=== PATIENT | male | born 1975 | race Caucasian/White ===

== ENCOUNTER 2017-08-18 15:31 | Day surgery (SDC) | payer BC ==
[2017-08-18] MEDS ORDERED: Sodium Chloride 0.9% 20 ML ONE (15:45)
[2017-08-18] MEDS ORDERED: ADMIXTURE FEE IVPB SCH (16:00)
[2017-08-18] MEDS ORDERED: SODIUM CHLORIDE 0.9% IVPB SCH (16:00)
[2017-08-18] MEDS ORDERED: BEVACIZUMAB IVPB SCH (16:00)
[2017-08-18] MEDS ORDERED: SODIUM CHLORIDE IVPB SCH (16:00)
[2017-08-18] MEDS ORDERED: FLUOROURACIL IVPB SCH (16:00)
[2017-08-18 17:08] VITALS: BP 119/78; TEMP 98.5
== END 2017-08-18 17:57 | disposition home or self-care (01) ==
LOC: ONC/OP 15:31
PROVIDERS: ATTEND Internal Medicine Hematology & Oncology
DX: Z51.11 Encounter for antineoplastic chemotherapy (principal); C18.8 Malignant neoplasm of overlapping sites of colon; C78.7 Secondary malignant neoplasm of liver and intrahepatic bile duct; R97.0 Elevated carcinoembryonic antigen [CEA]; K50.90 Crohn's disease, unspecified, without complications; Z79.899 Other long term (current) drug therapy; Z90.49 Acquired absence of other specified parts of digestive tract; Z93.2 Ileostomy status; Z98.890 Other specified postprocedural states
CPT/HCPCS: 80053; 82248; 82378; 83615; 84100; 84550; 85025; 96367; 96413; 96417; A4216; J0640; J1642; J7050; J9035; J9190

== ENCOUNTER 2017-09-01 13:42 | Day surgery (SDC) | payer BC ==
[2017-09-01 13:58] VITALS: BP 148/86; TEMP 98.1
[2017-09-01] MEDS ORDERED: SODIUM CHLORIDE IVPB SCH (14:30)
[2017-09-01] MEDS ORDERED: FLUOROURACIL IVPB SCH (14:30)
[2017-09-01] MEDS ORDERED: ADMIXTURE FEE IVPB SCH (14:30)
[2017-09-01] MEDS ORDERED: SODIUM CHLORIDE 0.9% IVPB SCH (14:30)
[2017-09-01] MEDS ORDERED: BEVACIZUMAB IVPB SCH (14:30)
== END 2017-09-01 15:54 | disposition home or self-care (01) ==
LOC: ONC/OP 13:42
PROVIDERS: ATTEND Internal Medicine Hematology & Oncology
DX: Z51.11 Encounter for antineoplastic chemotherapy (principal); C18.8 Malignant neoplasm of overlapping sites of colon; C78.7 Secondary malignant neoplasm of liver and intrahepatic bile duct; Z90.49 Acquired absence of other specified parts of digestive tract; Z93.2 Ileostomy status
CPT/HCPCS: 36415; 80053; 82248; 82378; 83615; 84100; 84550; 96367; 96413; 96417; J0640; J7050; J9035; J9190

== ENCOUNTER 2017-09-15 07:28 | Outpatient (CLI) | payer BC ==
--- NOTE | 2017-09-15 10:37 | CT ---
CHEST CT SCAN WITH IV CONTRAST ABDOMEN AND PELVIC CT SCAN WITH IV CONTRAST: History: 42-year-old male with malignant neoplasm overlaps sites of colon with history of prior liver metasta ses, resection with colostomy. Comparison: 04-22-[address], PET CT 01-31-17 Technique: Post contrast CT examination of the chest, abdomen, and pelvis is performed. FINDINGS: No evidence for pulmonary metastases. No mediastinal mass or adenopathy within the chest. No pleural effusion or pericardial effusion. In the liver there is an increase in size in metastatic liver lesion adjacent to the IVC in the righ t lobe as well as probable development of a 1.1 cm diameter lesion in the inferior and coronal aspec t of the right lobe of the liver. There is some minimal pericholecystic fluid. There are several oth er small stable hypoechoic foci within the liver. There is interval development of an approximately 2.9 x 6 cm diameter anterior mesenteric mass about midway between the xiphoid and umbilicus. In magali tion there are some nodular soft tissue changes in the left lateral abdominal mesentery and omental region. These are very concerning for omental metastasis. There is some minimal free fluid at the ed ge of the liver and possibly very mild free fluid in the pelvis. There is some abnormal wall thicken ing of the right colon at the site of prior surgery. This wall thickening now measures up to approxi mately 1.7 cm, very suspicious for tumor recurrence. There is also a 1.4 cm diameter nodular density adjacent to the resected lower right colon which may represent a focal area of recurrence as well. IMPRESSION: Interval development of multiple masses within the omentum and mesentery consistent with omental met astasis, the largest of which measures approximately 2.9 x 6 cm noted anteriorly in the upper abdome n. Prominent abnormal nodular wall thickening of the right colon at the site of prior surgery, evide nce for tumor recurrence with an associated 1.4 cm diameter nodular exophytic mass off the posterior portion of the remaining right colon. Minimal enlargement of liver metastasis adjacent to the IVC i n the right lobe as well as interval development of a 1.1 cm diameter liver mass at the inferior cor tical aspect of the liver. Minimal pericholecystic fluid. Stable nonobstructing right renal calculus and small left renal cyst. Trace peroneal fluid in the subhepatic region. No significant acute proc ess in the chest. Findings discussed with Dr. Arredondo at approximately 9:00 a.m. Code CR POS: [facility]
[2017-09-15] MEDS ORDERED: Iopamidol 370 76% 100 ML VIAL ONE (15:49)
== END 2017-09-15 07:29 | disposition home or self-care (01) ==
LOC: CT 07:28
PROVIDERS: ATTEND Internal Medicine Hematology & Oncology
DX: C18.8 Malignant neoplasm of overlapping sites of colon (principal); N28.1 Cyst of kidney, acquired; N20.0 Calculus of kidney
CPT/HCPCS: 71260; 74177; 80053; 82248; 82378; 83615; 84100; 84550

== ENCOUNTER → 2017-09-21 | Day surgery (SDC) | payer BC ==
[~2017-09-21] MED LIST: ADMIXTURE FEE IVPB SCH; Atropine Sulfate 0.25 MG in Sodium Chloride 0.9% 50 ML IVPB SCH; BEVACIZUMAB IVPB SCH; Dexamethasone 10 MG in Sodium Chloride 0.9% 50 ML IVPB SCH; Dexamethasone 20 MG in Sodium Chloride 0.9% 50 ML IVPB SCH; FLUOROURACIL SLOW IVP SCH; IRINOTECAN HCL IVPB SCH; Leucovorin Calcium 50 MG in Sodium Chloride 0.9% 500 ML IVPB SCH; Palonosetron HCl 0.25 MG in Sodium Chloride 0.9% 50 ML IVPB SCH; SODIUM CHLORIDE 0.9% IVPB SCH; SODIUM CHLORIDE IVPB SCH; Sodium Chloride 0.9% 20 ML ONE
[2017-09-21 16:18] VITALS: BP 118/71; TEMP 98.2
== END ==
LOC: ONC/OP 15:02
PROVIDERS: ATTEND Internal Medicine Hematology & Oncology
DX: Z51.11 Encounter for antineoplastic chemotherapy (principal); C18.8 Malignant neoplasm of overlapping sites of colon; C78.7 Secondary malignant neoplasm of liver and intrahepatic bile duct; K50.90 Crohn's disease, unspecified, without complications; Z90.49 Acquired absence of other specified parts of digestive tract
CPT/HCPCS: 96367; 96413; 96415; 96417; A4216; J0461; J0640; J1100; J2469; J7050; J9035; J9190; J9206

== ENCOUNTER 2017-10-05 14:08 | Day surgery (SDC) | payer BC ==
[2017-10-05] MEDS ORDERED: Atropine Sulfate 0.25 MG in Sodium Chloride 0.9% 50 ML IVP SCH (14:30)
[2017-10-05] MEDS ORDERED: Palonosetron HCl 0.25 MG in Sodium Chloride 0.9% 50 ML IVPB SCH (14:30)
[2017-10-05] MEDS ORDERED: Dexamethasone 20 MG in Sodium Chloride 0.9% 50 ML IVPB SCH (14:30)
[2017-10-05] MEDS ORDERED: BEVACIZUMAB IVPB SCH (14:30)
[2017-10-05] MEDS ORDERED: SODIUM CHLORIDE 0.9% IVPB SCH ×2 (14:30→16:30)
[2017-10-05] MEDS ORDERED: Atropine Sulfate 0.25 MG in Sodium Chloride 0.9% 50 ML IVPB SCH (14:45)
[2017-10-05] MEDS ORDERED: SODIUM CHLORIDE IVPB SCH (14:45)
[2017-10-05] MEDS ORDERED: ADMIXTURE FEE IVPB SCH (14:45)
[2017-10-05] MEDS ORDERED: FLUOROURACIL IVPB SCH (14:45)
[2017-10-05] MEDS ORDERED: IRINOTECAN HCL IVPB SCH (16:30)
[2017-10-05] MEDS ORDERED: Sodium Chloride 0.9% 20 ML ONE (18:14)
[2017-10-05 18:19] VITALS: BP 113/76; TEMP 98.1
== END 2017-10-05 19:17 | disposition home or self-care (01) ==
LOC: ONC/OP 14:08
PROVIDERS: ATTEND Internal Medicine Hematology & Oncology
DX: Z51.11 Encounter for antineoplastic chemotherapy (principal); C18.9 Malignant neoplasm of colon, unspecified; C78.6 Secondary malignant neoplasm of retroperitoneum and peritoneum; G62.9 Polyneuropathy, unspecified; K50.90 Crohn's disease, unspecified, without complications; Z90.49 Acquired absence of other specified parts of digestive tract; Z98.890 Other specified postprocedural states
CPT/HCPCS: 36415; 80053; 82248; 82378; 83615; 84100; 84550; 96367; 96413; 96417; A4216; J0461; J0640; J1100; J2469; J7050; J9035; J9190; J9206

== ENCOUNTER 2017-10-19 15:10 | Day surgery (SDC) | payer BC ==
[2017-10-19] MEDS ORDERED: Dexamethasone 20 MG in Sodium Chloride 0.9% 50 ML IVPB SCH (15:30)
[2017-10-19 15:36] VITALS: BP 109/69; TEMP 97.8
[2017-10-19] MEDS ORDERED: ADMIXTURE FEE CHEMO SLOW IVP SCH (15:45)
[2017-10-19] MEDS ORDERED: BEVACIZUMAB IVPB SCH (15:45)
[2017-10-19] MEDS ORDERED: SODIUM CHLORIDE 0.9% IVPB SCH ×3 (15:45→16:00)
[2017-10-19] MEDS ORDERED: IRINOTECAN HCL IVPB SCH (15:45)
[2017-10-19] MEDS ORDERED: Atropine Sulfate 0.25 MG in Sodium Chloride 0.9% 50 ML IVPB SCH (15:45)
[2017-10-19] MEDS ORDERED: FLUOROURACIL SLOW IVP SCH (15:45)
[2017-10-19] MEDS ORDERED: Palonosetron HCl 0.25 MG in Sodium Chloride 0.9% 50 ML IVPB SCH (15:45)
[2017-10-19] MEDS ORDERED: FLUOROURACIL IVPB SCH (16:00)
== END 2017-10-19 20:57 | disposition home or self-care (01) ==
LOC: ONC/OP 15:10
PROVIDERS: ATTEND Internal Medicine Hematology & Oncology
DX: Z51.11 Encounter for antineoplastic chemotherapy (principal); C18.9 Malignant neoplasm of colon, unspecified; Z90.49 Acquired absence of other specified parts of digestive tract
CPT/HCPCS: 80053; 82248; 82378; 83615; 84100; 84550; 96367; 96413; 96417; J0461; J0640; J1100; J2469; J7050; J9035; J9190; J9206

== ENCOUNTER 2017-11-02 12:06 | Day surgery (SDC) | payer BC ==
[2017-11-02] MEDS ORDERED: SODIUM CHLORIDE 0.9% IVPB SCH ×4 (12:15→13:15)
[2017-11-02] MEDS ORDERED: Dexamethasone 20 MG in Sodium Chloride 0.9% 50 ML IVPB SCH (12:15)
[2017-11-02] MEDS ORDERED: Palonosetron HCl 0.25 MG in Sodium Chloride 0.9% 50 ML IVPB SCH (12:15)
[2017-11-02] MEDS ORDERED: Atropine Sulfate 0.25 MG in Sodium Chloride 0.9% 50 ML IVPB SCH (12:15)
[2017-11-02] MEDS ORDERED: IRINOTECAN HCL IVPB SCH (12:15)
[2017-11-02] MEDS ORDERED: Sodium Chloride 0.9% 20 ML ONE (12:19)
[2017-11-02] MEDS ORDERED: FLUOROURACIL IVPB SCH (12:30)
[2017-11-02] MEDS ORDERED: BEVACIZUMAB IVPB SCH ×2 (12:30→13:15)
== END 2017-11-02 18:10 | disposition home or self-care (01) ==
LOC: ONC/OP 12:06
PROVIDERS: ATTEND Internal Medicine Hematology & Oncology
DX: Z51.11 Encounter for antineoplastic chemotherapy (principal); C18.8 Malignant neoplasm of overlapping sites of colon; C78.7 Secondary malignant neoplasm of liver and intrahepatic bile duct; G62.0 Drug-induced polyneuropathy; K50.90 Crohn's disease, unspecified, without complications; Z90.49 Acquired absence of other specified parts of digestive tract
CPT/HCPCS: 80053; 82248; 82378; 83615; 84100; 84550; 96367; 96413; 96415; 96417; A4216; J0461; J0640; J1100; J2469; J7050; J9035; J9190; J9206

== ENCOUNTER 2017-11-17 08:07 | Day surgery (SDC) | payer BC ==
[2017-11-17] MEDS ORDERED: Dexamethasone 20 MG in Sodium Chloride 0.9% 50 ML IVPB SCH (08:45)
[2017-11-17] MEDS ORDERED: Palonosetron HCl 0.25 MG in Sodium Chloride 0.9% 50 ML IVPB SCH (08:45)
[2017-11-17] MEDS ORDERED: Atropine Sulfate 0.25 MG in Sodium Chloride 0.9% 50 ML IVPB SCH (08:45)
[2017-11-17] MEDS ORDERED: IRINOTECAN HCL IVPB SCH (09:00)
[2017-11-17] MEDS ORDERED: SODIUM CHLORIDE 0.9% SLOW IVP SCH (09:00)
[2017-11-17] MEDS ORDERED: FLUOROURACIL SLOW IVP SCH (09:00)
[2017-11-17] MEDS ORDERED: SODIUM CHLORIDE 0.9% IVPB SCH ×2 (09:00)
[2017-11-17] MEDS ORDERED: BEVACIZUMAB IVPB SCH (09:00)
[2017-11-17] MEDS ORDERED: Sodium Chloride 0.9% 20 ML ONE (09:04)
[2017-11-17 09:37] VITALS: BP 111/65; TEMP 97.7
== END 2017-11-17 14:21 | disposition home or self-care (01) ==
LOC: ONC/OP 08:07
PROVIDERS: ATTEND Internal Medicine Hematology & Oncology
DX: Z51.11 Encounter for antineoplastic chemotherapy (principal); C18.8 Malignant neoplasm of overlapping sites of colon; C78.7 Secondary malignant neoplasm of liver and intrahepatic bile duct; K50.90 Crohn's disease, unspecified, without complications; G62.2 Polyneuropathy due to other toxic agents; T45.1X5A Adverse effect of antineoplastic and immunosuppressive drugs, initial encounter; Z90.49 Acquired absence of other specified parts of digestive tract
CPT/HCPCS: 96367; 96413; 96415; 96417; A4216; J0461; J0640; J1100; J2469; J7050; J9035; J9190; J9206

== ENCOUNTER 2017-11-30 11:29 | Day surgery (SDC) | payer BC ==
[2017-11-30 11:48] VITALS: BP 115/65; TEMP 97.8
[2017-11-30] MEDS ORDERED: Sodium Chloride 0.9% 20 ML ONE (11:53)
[2017-11-30] MEDS ORDERED: Dexamethasone 20 MG in Sodium Chloride 0.9% 50 ML IVPB SCH (12:00)
[2017-11-30] MEDS ORDERED: BEVACIZUMAB IVPB SCH ×2 (12:00)
[2017-11-30] MEDS ORDERED: IRINOTECAN HCL IVPB SCH (12:00)
[2017-11-30] MEDS ORDERED: Atropine Sulfate 0.25 MG in Sodium Chloride 0.9% 50 ML IVPB SCH (12:00)
[2017-11-30] MEDS ORDERED: SODIUM CHLORIDE 0.9% SLOW IVP SCH (12:00)
[2017-11-30] MEDS ORDERED: SODIUM CHLORIDE 0.9% IVPB SCH ×3 (12:00)
[2017-11-30] MEDS ORDERED: FLUOROURACIL SLOW IVP SCH (12:00)
[2017-11-30] MEDS ORDERED: Palonosetron HCl 0.25 MG in Sodium Chloride 0.9% 50 ML IVPB SCH (12:00)
== END 2017-11-30 17:34 | disposition home or self-care (01) ==
LOC: ONC/OP 11:29
PROVIDERS: ATTEND Internal Medicine Hematology & Oncology
DX: Z51.11 Encounter for antineoplastic chemotherapy (principal); C18.8 Malignant neoplasm of overlapping sites of colon; C78.7 Secondary malignant neoplasm of liver and intrahepatic bile duct; C78.6 Secondary malignant neoplasm of retroperitoneum and peritoneum; K50.90 Crohn's disease, unspecified, without complications; G62.9 Polyneuropathy, unspecified; Z90.49 Acquired absence of other specified parts of digestive tract; Z98.890 Other specified postprocedural states
CPT/HCPCS: 80053; 82248; 82378; 83615; 84100; 84550; 96367; 96413; 96415; 96417; A4216; J0461; J0640; J1100; J2469; J7050; J9035; J9190; J9206

== ENCOUNTER 2017-12-07 09:03 | Outpatient (CLI) | payer BC ==
[2017-12-07] MEDS ORDERED: Iopamidol 370 76% 100 ML VIAL ONE (16:21)
== END 2017-12-07 09:04 | disposition home or self-care (01) ==
LOC: BICCT 09:03
PROVIDERS: ATTEND Internal Medicine Hematology & Oncology
DX: C18.9 Malignant neoplasm of colon, unspecified (principal); C78.7 Secondary malignant neoplasm of liver and intrahepatic bile duct
CPT/HCPCS: 71260; 74177

== ENCOUNTER 2017-12-14 10:53 | Day surgery (SDC) | payer BC ==
[2017-12-14] MEDS ORDERED: Sodium Chloride 0.9% 40 ML ONE (10:55)
[2017-12-14 11:12] VITALS: BP 114/76; TEMP 97.9
[2017-12-14] MEDS ORDERED: PALONOSETRON HCL 0.05 MG/ML 5 ML VIAL IVP SCH (12:00)
[2017-12-14] MEDS ORDERED: Dexamethasone 20 MG/5 ML VIAL SLOW IVP SCH (12:00)
[2017-12-14] MEDS ORDERED: Atropine Sulfate 0.25 MG in Sodium Chloride 0.9% 50 ML IVPB SCH (12:00)
[2017-12-14] MEDS ORDERED: BEVACIZUMAB IVPB SCH (12:15)
[2017-12-14] MEDS ORDERED: SODIUM CHLORIDE 0.9% IVPB SCH ×3 (12:15→12:30)
[2017-12-14] MEDS ORDERED: IRINOTECAN HCL IVPB SCH (12:15)
[2017-12-14] MEDS ORDERED: FLUOROURACIL SLOW IVP SCH (12:30)
[2017-12-14] MEDS ORDERED: FLUOROURACIL IVPB SCH (12:30)
[2017-12-14] MEDS ORDERED: ADMIXTURE FEE CHEMO SLOW IVP SCH (12:30)
[2017-12-14] MEDS ORDERED: Dexamethasone 4 mg/ml Vial SLOW IVP SCH (13:00)
== END 2017-12-14 16:15 | disposition home or self-care (01) ==
LOC: ONC/OP 10:53
PROVIDERS: ATTEND Internal Medicine Hematology & Oncology
DX: Z51.11 Encounter for antineoplastic chemotherapy (principal); C18.8 Malignant neoplasm of overlapping sites of colon; C78.7 Secondary malignant neoplasm of liver and intrahepatic bile duct; G62.9 Polyneuropathy, unspecified; K50.90 Crohn's disease, unspecified, without complications; Z90.49 Acquired absence of other specified parts of digestive tract
CPT/HCPCS: 36415; 80053; 82248; 82378; 83615; 84100; 84550; 96367; 96376; 96413; 96417; A4216; J0461; J0640; J1100; J2469; J7050; J9035; J9190; J9206

== ENCOUNTER 2017-12-22 12:31 | Outpatient (CLI) | payer BC ==
--- NOTE | 2017-12-22 15:07 | PET ---
PET CT: HISTORY: 42-year-old male with colorectal cancer. Exam requested for restaging. Last chemotherapy was 1 week a go. TECHNIQUE: PET scanning with CT attenuation correction was performed from the base of the brain through the prox imal thighs following the intravenous administration of 11.8 mCi F18-FDG in the left antecubital frannie a. Imaging was performed after an uptake interval of 47 minutes. COMPARISON: PET CT dated 01/31/17. CORRELATION: CT chest, abdomen, and pelvis dated 12/07/17. FINDINGS: There is a focal area of increased FDG localization in the lower medial aspect of the liver close to the IVC with a SUV of 10.3. The mid anterior abdominal wall mass is hypermetabolic with a SUV of 7.1. Small focus of increased up take in the gastrohepatic ligament with a SUV of 4.8 likely represents a lymph node. There is a hypermetabolic soft tissue density anterior to the right psoas in the right lower quadrant with a SUV of 3.7. Soft tissue nodules with increased FDG localization are seen in the left abdomen and pelvis with a SUV of 5.3 in the left upper iliac fossa and SUV of 5 in the left deep pelvis. Focal increased uptake is seen in the lateral rectal wall on the left with a SUV of 5. No hypermetabolic pulmonary nodules, adrenal, or skeletal lesions are seen. There is physiologic activity in the GI and tracts and the visualized portions of the brain. The CT scan used for attenuation correction demonstrates no evidence of pleural effusions or ascites. A right lower quadrant ostomy is again seen. IMPRESSION: Findings are consistent with metastatic disease in the abdomen and pelvis. Interval worsening is seen since the PET CT of 01/31/17. POS: [facility]
== END 2017-12-22 12:32 | disposition home or self-care (01) ==
LOC: PET 12:31
PROVIDERS: ATTEND Internal Medicine Hematology & Oncology
DX: C18.8 Malignant neoplasm of overlapping sites of colon (principal)
CPT/HCPCS: 78815; A9552

== ENCOUNTER 2017-12-28 10:08 | Day surgery (SDC) | payer BC ==
[2017-12-28] MEDS ORDERED: LEUCOVORIN CALCIUM IVPB SCH (10:30)
[2017-12-28] MEDS ORDERED: SODIUM CHLORIDE IVPB SCH ×4 (10:30→10:45)
[2017-12-28] MEDS ORDERED: ADMIXTURE FEE IVPB SCH ×4 (10:30→10:45)
[2017-12-28] MEDS ORDERED: Atropine Sulfate 0.25 MG, Admixture Fee 1 EACH in Sodium Chloride 0.9% 50 ML IVPB SCH (10:30)
[2017-12-28] MEDS ORDERED: PALONOSETRON HCL 0.05 MG/ML 5 ML VIAL IVP SCH (10:45)
[2017-12-28] MEDS ORDERED: FLUOROURACIL IVPB SCH (10:45)
[2017-12-28] MEDS ORDERED: Dexamethasone 20 MG/5 ML VIAL SLOW IVP SCH (10:45)
[2017-12-28] MEDS ORDERED: IRINOTECAN HCL IVPB SCH (10:45)
[2017-12-28] MEDS ORDERED: BEVACIZUMAB IVPB SCH (10:45)
[2017-12-28 10:47] VITALS: BP 127/73; TEMP 97.9
[2017-12-28] MEDS ORDERED: Dexamethasone 4 mg/ml Vial SLOW IVP SCH (12:15)
== END 2017-12-28 16:12 | disposition home or self-care (01) ==
LOC: ONC/OP 10:08
PROVIDERS: ATTEND Internal Medicine Hematology & Oncology
DX: Z51.11 Encounter for antineoplastic chemotherapy (principal); C18.8 Malignant neoplasm of overlapping sites of colon; C78.7 Secondary malignant neoplasm of liver and intrahepatic bile duct; R97.0 Elevated carcinoembryonic antigen [CEA]; Z90.49 Acquired absence of other specified parts of digestive tract; K50.90 Crohn's disease, unspecified, without complications; G62.9 Polyneuropathy, unspecified; Z98.890 Other specified postprocedural states
CPT/HCPCS: 36415; 80053; 82248; 82378; 83615; 84100; 84550; 96366; 96375; 96413; 96417; J0461; J0640; J1100; J2469; J7050; J9035; J9190; J9206

== ENCOUNTER → 2018-01-11 | Day surgery (SDC) | payer BC ==
[~2018-01-11] MED LIST changes: -Atropine Sulfate 0.25 MG in Sodium Chloride 0.9% 50 ML IVPB SCH; +Atropine Sulfate 0.25 MG, Admixture Fee 1 EACH in Sodium Chloride 0.9% 50 ML IVPB SCH; -Dexamethasone 10 MG in Sodium Chloride 0.9% 50 ML IVPB SCH; +Dexamethasone 10 MG/ML VIAL SLOW IVP SCH; -Dexamethasone 20 MG in Sodium Chloride 0.9% 50 ML IVPB SCH; +FLUOROURACIL IVPB SCH; -FLUOROURACIL SLOW IVP SCH; +LEUCOVORIN CALCIUM IVPB SCH; -Leucovorin Calcium 50 MG in Sodium Chloride 0.9% 500 ML IVPB SCH; +PALONOSETRON HCL 0.05 MG/ML 5 ML VIAL IVP SCH; -Palonosetron HCl 0.25 MG in Sodium Chloride 0.9% 50 ML IVPB SCH; -SODIUM CHLORIDE 0.9% IVPB SCH; -Sodium Chloride 0.9% 20 ML ONE
[2018-01-11 16:59] VITALS: BP 120/74; TEMP 98.1
== END ==
LOC: ONC/OP 13:40
PROVIDERS: ATTEND Internal Medicine Hematology & Oncology
DX: Z51.11 Encounter for antineoplastic chemotherapy (principal); C18.8 Malignant neoplasm of overlapping sites of colon; C78.7 Secondary malignant neoplasm of liver and intrahepatic bile duct; G62.0 Drug-induced polyneuropathy; T45.1X5A Adverse effect of antineoplastic and immunosuppressive drugs, initial encounter; K50.90 Crohn's disease, unspecified, without complications; Z90.49 Acquired absence of other specified parts of digestive tract; Z98.890 Other specified postprocedural states
CPT/HCPCS: 80053; 82248; 82378; 83615; 84100; 84550; 96367; 96375; 96413; 96416; 96417; A4216; J0461; J0640; J1100; J2469; J7050; J9035; J9190; J9206

== ENCOUNTER 2018-01-25 09:22 | Day surgery (SDC) | payer BC ==
[2018-01-25] MEDS ORDERED: Palonosetron HCl 0.25 MG in Sodium Chloride 0.9% 50 ML IVPB SCH (09:30)
[2018-01-25] MEDS ORDERED: Dexamethasone 20 MG in Sodium Chloride 0.9% 50 ML IVPB SCH (09:30)
[2018-01-25] MEDS ORDERED: Sodium Chloride 0.9% 40 ML ONE (09:39)
[2018-01-25] MEDS ORDERED: SODIUM CHLORIDE 0.9% IVPB SCH ×4 (09:45→10:00)
[2018-01-25] MEDS ORDERED: BEVACIZUMAB IVPB SCH ×2 (09:45→10:00)
[2018-01-25] MEDS ORDERED: IRINOTECAN HCL IVPB SCH (09:45)
[2018-01-25] MEDS ORDERED: FLUOROURACIL SLOW IVP SCH ×2 (09:45→10:00)
[2018-01-25] MEDS ORDERED: Atropine Sulfate 0.25 MG in Sodium Chloride 0.9% 50 ML IVPB SCH (09:45)
[2018-01-25 09:58] VITALS: BP 130/99; TEMP 97.5
[2018-01-25] MEDS ORDERED: PALONOSETRON HCL 0.05 MG/ML 5 ML VIAL IVP SCH (10:00)
[2018-01-25] MEDS ORDERED: SODIUM CHLORIDE 0.9% SLOW IVP SCH (10:00)
[2018-01-25] MEDS ORDERED: FLUOROURACIL IVPB SCH (10:00)
[2018-01-25] MEDS ORDERED: Dexamethasone 10 MG/ML VIAL SLOW IVP SCH (10:15)
== END 2018-01-25 15:59 | disposition home or self-care (01) ==
LOC: ONC/OP 09:22
PROVIDERS: ATTEND Internal Medicine Hematology & Oncology
DX: Z51.11 Encounter for antineoplastic chemotherapy (principal); C18.8 Malignant neoplasm of overlapping sites of colon; C78.7 Secondary malignant neoplasm of liver and intrahepatic bile duct; K50.90 Crohn's disease, unspecified, without complications; Z90.49 Acquired absence of other specified parts of digestive tract
CPT/HCPCS: 36415; 80053; 82248; 82378; 83615; 84100; 84550; 96367; 96375; 96413; 96417; A4216; J0461; J0640; J1100; J2469; J7050; J9035; J9190; J9206

== ENCOUNTER 2018-02-08 09:36 | Day surgery (SDC) | payer BC ==
[2018-02-08] MEDS ORDERED: Sodium Chloride 0.9% 50 ML ONE (09:42)
[2018-02-08] MEDS ORDERED: Dexamethasone 10 MG/ML VIAL SLOW IVP SCH (09:45)
[2018-02-08] MEDS ORDERED: Atropine Sulfate 0.25 MG, Admixture Fee 1 EACH in Sodium Chloride 0.9% 50 ML IVPB SCH (09:45)
[2018-02-08] MEDS ORDERED: PALONOSETRON HCL 0.05 MG/ML 5 ML VIAL IVP SCH (09:45)
[2018-02-08] MEDS ORDERED: ADMIXTURE FEE IVPB SCH ×4 (09:45→10:00)
[2018-02-08] MEDS ORDERED: LEUCOVORIN CALCIUM IVPB SCH (09:45)
[2018-02-08] MEDS ORDERED: SODIUM CHLORIDE IVPB SCH ×4 (09:45→10:00)
[2018-02-08] MEDS ORDERED: BEVACIZUMAB IVPB SCH (10:00)
[2018-02-08] MEDS ORDERED: FLUOROURACIL IVPB SCH (10:00)
[2018-02-08] MEDS ORDERED: IRINOTECAN HCL IVPB SCH (10:00)
[2018-02-08 10:09] VITALS: BP 123/81; TEMP 97.7
== END 2018-02-08 14:40 | disposition home or self-care (01) ==
LOC: ONC/OP 09:36
PROVIDERS: ATTEND Internal Medicine Hematology & Oncology
DX: Z51.11 Encounter for antineoplastic chemotherapy (principal); C18.8 Malignant neoplasm of overlapping sites of colon; C78.6 Secondary malignant neoplasm of retroperitoneum and peritoneum; G62.0 Drug-induced polyneuropathy; T45.1X5A Adverse effect of antineoplastic and immunosuppressive drugs, initial encounter; K50.90 Crohn's disease, unspecified, without complications; Z90.49 Acquired absence of other specified parts of digestive tract; Z98.890 Other specified postprocedural states
CPT/HCPCS: 36415; 80053; 82248; 82378; 83615; 84100; 84550; 96367; 96375; 96413; 96417; A4216; J0461; J0640; J1100; J2469; J7050; J9035; J9190; J9206

== ENCOUNTER 2018-02-22 09:39 | Day surgery (SDC) | payer BC ==
[2018-02-22] MEDS ORDERED: Sodium Chloride 0.9% 40 ML ONE (09:58)
[2018-02-22] MEDS ORDERED: FLUOROURACIL IVPB SCH (10:15)
[2018-02-22] MEDS ORDERED: BEVACIZUMAB IVPB SCH (10:15)
[2018-02-22] MEDS ORDERED: LEUCOVORIN CALCIUM IVPB SCH (10:15)
[2018-02-22] MEDS ORDERED: Dexamethasone 10 MG/ML VIAL SLOW IVP SCH (10:15)
[2018-02-22] MEDS ORDERED: Atropine Sulfate 0.25 MG, Admixture Fee 1 EACH in Sodium Chloride 0.9% 50 ML IVPB SCH (10:15)
[2018-02-22] MEDS ORDERED: ADMIXTURE FEE IVPB SCH ×4 (10:15)
[2018-02-22] MEDS ORDERED: PALONOSETRON HCL 0.05 MG/ML 5 ML VIAL IVP SCH (10:15)
[2018-02-22] MEDS ORDERED: IRINOTECAN HCL IVPB SCH (10:15)
[2018-02-22] MEDS ORDERED: SODIUM CHLORIDE IVPB SCH ×4 (10:15)
[2018-02-22 11:32] VITALS: BP 134/86; TEMP 97.8
== END 2018-02-22 14:57 | disposition home or self-care (01) ==
LOC: ONC/OP 09:39
PROVIDERS: ATTEND Internal Medicine Hematology & Oncology
DX: R97.0 Elevated carcinoembryonic antigen [CEA]; Z98.890 Other specified postprocedural states; C78.7 Secondary malignant neoplasm of liver and intrahepatic bile duct; G62.2 Polyneuropathy due to other toxic agents; Z51.11 Encounter for antineoplastic chemotherapy; Z90.49 Acquired absence of other specified parts of digestive tract; K50.10 Crohn's disease of large intestine without complications; T45.1X5A Adverse effect of antineoplastic and immunosuppressive drugs, initial encounter; C18.8 Malignant neoplasm of overlapping sites of colon
CPT/HCPCS: 80053; 82248; 82378; 83615; 84100; 84550; 96367; 96375; 96413; 96417; A4216; J0461; J0640; J1100; J2469; J7050; J9035; J9190; J9206

== ENCOUNTER 2018-03-30 12:18 | Inpatient (IN) | payer BC ==
[2018-03-30] MEDS ORDERED: Sodium Chloride 0.9% 1,000 ML IV SCH ×2 (12:45→14:30)
[2018-03-30 13:37] VITALS: BMI 15.3
[2018-03-30] MEDS ORDERED: Acetaminophen 325 MG TAB PO PRN (14:27)
[2018-03-30] MEDS ORDERED: Morphine 4 MG/ML VIAL SLOW IVP PRN (14:27)
[2018-03-30] MEDS ORDERED: Ondansetron HCl/PF 4 MG/2 ML Vial IVP PRN (14:27)
[2018-03-30 15:03] LABS: Anisocytosis SLIGHT = 6-15 cells (100X) (0-5/hpf); Band 24 % (5-11); Hemoglobin 13.2 g/dL (14.0-18.0); Lymphocytes 3 % (21-51); MDiff Complete? YES; Mean Corpuscular HGB CONC 32.3 g/dL (32.0-36.0); Mean Corpuscular Hemoglobin 27.5 pg (27.0-31.0); Mean Corpuscular Volume 85.3 fl (80.0-94.0); Mean Platelet Volume 5.5 fL (7.4-10.4); Metamyelocyte 2 % (0-0); Monocytes 12 % (0-10); Neutrophil 57 % (42-75); PLT Morphology Comment Appears Increased; Platelet Count 706 thou/uL (130-400); RBC Distribution Width 14.7 % (11.5-14.5); Reactive Lymphocytes 2 % (0-10); Red Blood Cell (RBC) Count 4.78 mill/uL (4.70-6.10); Toxic Granulation SLIGHT; White Blood Cell (WBC) Count 14.9 thou/uL (4.8-10.8)
[2018-03-30 15:05] LABS: ALT (SGPT) 21 U/L (8-55); AST (SGOT) 29 U/L (5-34); Albumin 3.6 g/dL (3.5-5.0); Alkaline Phosphatase 147 U/L (40-150); Anion Gap 18 mmol/L (10-20); BUN (Urea Nitrogen) 58 mg/dL (8.9-20.6); Bilirubin, Total 0.4 mg/dL (0.2-1.2); Calc. Creatinine Clearance 26 mL/min (70-130); Carbon Dioxide 25 mmol/L (22-29); Chloride 81 mmol/L (98-107); Estimated GFR-MDRD 30; Globulin 3.6 g/dL (2.4-3.5); Glucose 119 mg/dL (70-105); Potassium 4.5 mmol/L (3.5-5.1); Protein, Total 7.2 g/dL (6.0-8.3)
[2018-03-30 15:09] LABS: Sodium 119 mmol/L (136-145)
[2018-03-30] MEDS: Sodium Chloride 0.9% 1,000 ML IV SCH (15:33)
[2018-03-30] MEDS ORDERED: cloNIDine 0.1 MG TAB PO PRN (17:05)
--- NOTE | 2018-03-30 17:55 | HP ---
PRIMARY CARE PHYSICIAN: The patient does not have a primary care physician. ONCOLOGIST: Jenn Arredondo MD REASON FOR ADMISSION: Dehydration and dysphagia. HISTORY OF PRESENT ILLNESS: Mr. Solorzano is a very pleasant 43-year-old gentleman who was diagnosed w ith colon cancer about a year and half ago. He was found to have a stage T4 N2 M1 adenocarcinoma of the colon, and he has been undergoing chemotherapy for this. He says that in the last month, he has been having progressive difficulty with swallowing. Over the last 6-7 days, he has not even been abl e to tolerate a protein shake, which he had been trying to take in order to keep his nutrition up. H dina says that he feels a pressure-like sensation in his chest and the food just would not go down. Usu ally, he has to spit it up. He says that if he lays to the side, then the food will just basically r oll out of his mouth. He also says he feels bloated and full with only one or two bites or even if h e just takes a sip. He says that he has lost about 30 pounds over the last month. He has a colostom y and says that the output from the colostomy has decreased. He has not seen any blood. He denies a ny hematemesis. He denies any abdominal pain and he denies any odynophagia or pain with swallowing. He was seen in his oncologist's office today and he is being directly admitted for further evaluatio n and treatment. REVIEW OF SYSTEMS: Constitutional: He denies any fevers. No chills, no night sweats, no weight los s. HEENT: Headaches. He has felt a little bit dizzy, lightheaded, and weak. No visual changes. N o sore throat, rhinorrhea, neck pain. No adenopathy. Pulmonary: No hemoptysis, no cough, no wheezi ng. Cardiovascular: He denies any chest pain or shortness of breath. No PND, no orthopnea. Gastro intestinal: As per history of present illness. Genitourinary: No urinary frequency, hematuria. No hesitancy. Musculoskeletal: No muscle pains, weakness, or joint pains. Neurologic: No focal weak ness, numbness. No seizures. Psychiatric: No symptoms of anxiety or depression. Skin and Integume nt: No skin changes. No rash. PAST MEDICAL HISTORY: Significant for stage IV adenocarcinoma of the colon diagnosed about a year an d half ago. He also has a history of Crohn's disease. PAST SURGICAL HISTORY: He has had a bowel resection and colostomy placed. He also has had a MediPor t. ALLERGIES: No known drug allergies. SOCIAL HISTORY: He is . He has 1 child. He is a nonsmoker, nondrinker. CODE STATUS: FULL CODE. FAMILY HISTORY: No history of any inheritable diseases. CURRENT MEDICATIONS: He said he was taking morphine sulfate and [place], but has since been unable to take this medication. PHYSICAL EXAMINATION: GENERAL: He is alert and oriented. He appears to be in no acute distress. He appears to be very ca chectic and he appears underweight. VITAL SIGNS: Stable. HEENT: His pupils are equal, round, and reactive. Extraocular muscles are intact. His sclerae are anicteric. Throat, there is no erythema, no exudates. NECK: No adenopathy, no bruits. LUNGS: Clear to auscultation. There was no wheezing, no rales. CARDIOVASCULAR: He had a normal S1 and S2. I did not appreciate an S3 or S4. No murmurs, clicks, o r rubs. ABDOMEN: Soft, nontender, nondistended. There were no problems around the colostomy site. Bowel so unds were present. No appreciable organomegaly. EXTREMITIES: There was no clubbing, cyanosis. No edema. He has got palpable dorsalis pedis pulses bilaterally. NEUROLOGIC: The exam is nonfocal. LABORATORY DATA: There are currently no lab results for review as he is a direct admission. He did have some blood work done on 03/16/2018, which was essentially normal except he had a slight elevatio n in his creatinine at 1.39 and his hemoglobin was 11.5. ASSESSMENT AND PLAN: This is a pleasant 43-year-old gentleman who has a history of stage IV colon ca ncer, who has had progressive dysphagia over the past month with significant weight loss. He will be admitted to the oncology floor. We will start him on IV fluids. We will also need to check some ba sic chemistry panel and CBC and consult Gastroenterology for further evaluation. Should he have some electrolyte derangements, these will be replaced. He will also need symptom relief, which can be ac hieved with IV morphine and he will need to be placed on deep venous thrombosis and gastrointestinal prophylaxes.
[2018-03-30 18:05] LABS: Sodium, Urine 20 mmol/L (Not Available)
[2018-03-30 18:07] LABS: Osmolality, Urine 533 mOsm/kg (300-900)
--- NOTE | 2018-03-30 18:12 | CON ---
DATE OF CONSULTATION: 03/30/2018 GI INPATIENT CONSULTATION NOTE REQUESTING PHYSICIAN: Dr. Arredondo. REASON FOR CONSULTATION: Dysphagia and weight loss, colon cancer. HISTORY OF PRESENT ILLNESS: Kevin Solorzano is a very pleasant 43-year-old man with an unfortunate hi story of metastatic colon cancer with peritoneal carcinomatosis. I met him around 2015 during a hospitalization in which he acutely presented with a left-sided colonic obstruction from wha t turned out to be an adenocarcinoma. The patient was found to have metastatic disease. During that hospitalization, he underwent an end ileostomy. He has been receiving maintenance chemotherapy unde r the direction of Dr. Arredondo. He has been evaluated at [facility]. The patient has a long histor y of untreated Crohn disease which had been minimally symptomatic through all this time. I last saw him about 1 year ago in 03/2017. At that time, I was attempting completion colonoscopy, but I was un able to advance beyond the rectum due to severe stricture in that area. I had recommended total bayron ctomy, but as he was found to have metastatic abdominal malignancy with peritoneal carcinomatosis, it was decided that the risks of the surgery would outweigh any potential benefit. He tells me that he has been doing pretty well over the past year until about the past month. Over this time frame, he has started to have more abdominal fullness and early satiety. He has a sensation of dysphagia, feel ing like food hangs up in the lower chest or the epigastrium. There is a lot of reflux going on. He has tried different antacids without much benefit. He takes [place] and morphine at home and this was initially helping with that sensation, but not anymore because of the decreased oral intake, he has lost about 30 pounds over the past month. Despite this, he has continued to have nonbloody output fr om his ileostomy, though the output has been slowly decreasing. He was seen at Dr. Arredondo's clinic today and due to reported inability to take in adequate nutrition or even adequate fluid over the pas t week, he is admitted for further evaluation. PAST MEDICAL HISTORY: 1. Crohn disease, untreated over the course of 20 years of disease. 2. Psoriasis. 3. Stage IV adenocarcinoma of the colon, with peritoneal carcinomatosis. 4. Left colon resection and ileostomy, 09/2016. ALLERGIES: No known drug allergies. OUTPATIENT MEDICATIONS: [place] p.r.n., morphine p.r.n. INPATIENT MEDICATIONS: Morphine IV p.r.n., Zofran IV p.r.n., Tylenol p.r.n. FAMILY HISTORY: Negative for gastrointestinal malignancy. SOCIAL HISTORY: The patient does not smoke or drink alcohol. PHYSICAL EXAMINATION: VITAL SIGNS: Temperature 97.2, pulse 103, 97% oxygen saturation on room air. GENERAL: Cachectic 43-year-old man, lying in bed comfortably in no distress, appearing chr onically ill, but nontoxic. SKIN: No jaundice, no rash visible or palpable. EYES: No scleral icterus. Extraocular movements intact. ENT: Mucous membranes moist, no oral lesions. LYMPH: No submandibular, supraclavicular lymphadenopathy. THYROID: Nontender to palpation. HEART: Regular rate and rhythm. LUNGS: Clear to auscultation bilaterally. ABDOMEN: There is mild distention. He has a right-sided ileostomy with normal appearing stool in th e bag. Multiple surgical scars are well healed. No significant tenderness to palpation of the abdom en. There is a mass-like fullness in the epigastrium as well as along his incisional scar. EXTREMITIES: No peripheral edema. VESSELS: Radial pulses 2+ bilaterally. NEUROLOGICAL: Cranial nerves II-XII intact bilaterally. No focal deficits. LABORATORY STUDIES: Most recent labs from 03/16/2018 shows sodium 137, potassium 3.6, BUN 17, creati nine 1.39, total bilirubin 0.5, alkaline phosphatase 85, AST 22, ALT 10, albumin 3.7, LDH 242. CEA 8 1.9. IMAGING STUDIES: I see report from a PET scan from 12/22/2017. This demonstrated interval progressi on of multifocal abdominal and pelvic metastatic disease. ASSESSMENT AND PLAN: 1. Dysphagia. 2. Early satiety. 3. Weight loss. 4. Stage IV adenocarcinoma of the colon, diffusely metastatic to the abdomen and pelvis with periton eal carcinomatosis. 5. Crohn disease of the small and large bowel. I had a long discussion with Kevin today regarding his clinical course and more recent progression o f symptoms. It is difficult to know what exactly attribute his more recent intolerance of oral intak e and weight loss. There is a significant component of reflux and early satiety, but he does not timo ear obstructed and he continues to have ileostomy output. I think it would be worthwhile to perform EGD to rule out esophageal or pyloric stricture or peptic ulcer disease, something that we could inte rvene on and give him some palliation. It is possible that this may just represent progression of hi s intra-abdominal malignancy. Regardless, overall prognosis remains extremely poor and the patient u nderstands this. We will plan for EGD tomorrow with possible esophageal dilation. The patient shahriar es to proceed.
[2018-03-30] MEDS: Morphine 4 MG/ML VIAL SLOW IVP PRN (20:12)
[2018-03-31] MEDS: Morphine 4 MG/ML VIAL SLOW IVP PRN ×3 (00:01→08:41)
[2018-03-31] MEDS: Sodium Chloride 0.9% 1,000 ML IV SCH ×3 (01:30→12:27)
[2018-03-31] MEDS ORDERED: Enoxaparin Sodium 30 MG/0.3 ML SYRINGE SC SCH (09:00)
[2018-03-31 11:08] LABS: Band 19 % (5-11); Hemoglobin 12.9 g/dL (14.0-18.0); Lymphocytes 6 % (21-51); MDiff Complete? YES; Mean Corpuscular HGB CONC 32.1 g/dL (32.0-36.0); Mean Corpuscular Hemoglobin 27.3 pg (27.0-31.0); Mean Corpuscular Volume 85.1 fl (80.0-94.0); Mean Platelet Volume 5.5 fL (7.4-10.4); Metamyelocyte 2 % (0-0); Monocytes 8 % (0-10); Myelocyte 3 % (0-0); Neutrophil 62 % (42-75); PLT Morphology Comment Appears Increased; Platelet Count 676 thou/uL (130-400); RBC Distribution Width 14.7 % (11.5-14.5); RBC Morphology Normal; Red Blood Cell (RBC) Count 4.72 mill/uL (4.70-6.10); Toxic Granulation SLIGHT; White Blood Cell (WBC) Count 14.5 thou/uL (4.8-10.8)
[2018-03-31 11:11] LABS: Anion Gap 15 mmol/L (10-20); BUN (Urea Nitrogen) 38 mg/dL (8.9-20.6); Calc. Creatinine Clearance 51 mL/min (70-130); Carbon Dioxide 25 mmol/L (22-29); Chloride 90 mmol/L (98-107); Estimated GFR-MDRD 67; Glucose 98 mg/dL (70-105); Potassium 4.3 mmol/L (3.5-5.1); Sodium 126 mmol/L (136-145)
[2018-03-31] MEDS: Fentanyl 100 MCG/2 ML VIAL SLOW IVP PRN (12:27)
[2018-03-31] MEDS ORDERED: hydrALAZINE 20 MG/ML VIAL SLOW IVP PRN (12:55)
[2018-03-31] MEDS ORDERED: Pantoprazole 40 MG VIAL IVP SCH ×2 (13:00)
[2018-03-31] MEDS ORDERED: Iopamidol 370 76% 100 ML VIAL ONE (13:20)
[2018-03-31] MEDS ORDERED: Iopamidol 370 76% 50 ML VIAL FS ONE (13:20)
[2018-03-31] MEDS ORDERED: Fentanyl 100 MCG/2 ML VIAL SLOW IVP SCH (13:30)
--- NOTE | 2018-03-31 14:25 | PDOC.PN ---
- Subjective Encounter Start Date: 03/31/18 Encounter Start Time: 07:00 Pt seen for followup re: hyponatremia. Reports generalized weakness. Denies nausea or vomiting. Reports poor appetite. - Objective Resuscitation Status: Resuscitation Status FULL:Full Resuscitation MAR Reviewed: Yes Vital Signs & Weight: Vital Signs (12 hours) Temp Pulse Resp BP Pulse Ox 03/31/18 08:00 97.8 F 107 H 20 97 03/31/18 07:41 97.8 F 107 H 20 114/103 H 98 03/31/18 04:00 98.0 F 106 H 20 148/88 H 98 Weight Admit Weight 98 lb Weight 98 lb I&O: 03/30/18 03/31/18 04/01/18 06:59 06:59 06:59 Intake Total 400 Balance 400 Result Diagrams: 03/31/18 10:07 03/31/18 10:07 Additional Labs: Labs reviewed by me Phys Exam - Physical Examination Cachexia HEENT: sclera anicteric, oral pharynx no lesions, 2+ tonsils Dry mucosae Neck: no nodes, no JVD, supple, full ROM Respiratory: no wheezing, no rales, no rhonchi, clear to auscultation bilateral Cardiovascular: RRR, no rub S1, S2 Gastrointestinal: soft, non-tender, no distention, positive bowel sounds ostomy+ Neurological: moves all 4 limbs Psychiatric: normal affect, A&O x 3 Dx/Plan (1) Hyponatremia Code(s): E87.1 - HYPO-OSMOLALITY AND HYPONATREMIA Status: Acute Comment: Continue IV NS, recheck sodium level. (2) Dysphagia Code(s): R13.10 - DYSPHAGIA, UNSPECIFIED Status: Acute Comment: For EGD today. (3) PATRICIA (acute kidney injury) Code(s): N17.9 - ACUTE KIDNEY FAILURE, UNSPECIFIED Status: Acute Comment: Likely prerenal, hydrate and recheck creatinine (4) Severe protein-calorie malnutrition Code(s): E43 - UNSPECIFIED SEVERE PROTEIN-CALORIE MALNUTRITION Status: Chronic Comment: consult dietitian (5) Crohns disease Code(s): K50.90 - CROHN'S DISEASE, UNSPECIFIED, WITHOUT COMPLICATIONS Status: Chronic (6) Colon cancer Code(s): C18.9 - MALIGNANT NEOPLASM OF COLON, UNSPECIFIED Status: Chronic - Plan * . Review of Systems - Review of Systems Constitutional: weakness, other (weight loss). negative: fever, chills, sweats , malaise Respiratory: negative: Cough, Shortness of Breath, SOB with Excertion, Pleuritic Pain, Wheezing Cardiovascular: negative: chest pain, palpitations, orthopnea, paroxysmal nocturnal dyspnea, edema, light headedness Gastrointestinal: Other (Difficulty swallowing). negative: Nausea, Vomiting, Abdominal Pain, Diarrhea Genitourinary: negative: Dysuria, Frequency, Incontinence, Hematuria, Retention - Medications/Allergies Allergies/Adverse Reactions: Allergies Allergy/AdvReac Type Severity Reaction Status Date / Time No Known Allergies Allergy Verified 04/21/17 14:23 Medications: Current Medications Acetaminophen (Tylenol) 650 mg PO Q4H PRN PRN Reason: Headache/Fever or Pain Clonidine (Catapres) 0.1 mg PO Q4H PRN PRN Reason: Systolic BP > 180 Last Admin: 03/30/18 17:39 Dose: 0.1 mg Enoxaparin Sodium (Lovenox) 30 mg SC 0900 [facility] Last Admin: 03/31/18 11:26 Dose: Not Given Fentanyl (Sublimaze) 12.5 mcg SLOW IVP Q6H PRN PRN Reason: Pain Last Admin: 03/31/18 12:27 Dose: 12.5 mcg Fentanyl (Sublimaze) 12.5 mcg SLOW IVP NOW [facility] Stop: 03/31/18 15:00 Last Admin: 03/31/18 13:40 Dose: 12.5 mcg Fentanyl (Duragesic) 75 mcg TD Q3D [facility] Hydralazine HCl (Apresoline) 10 mg SLOW IVP Q6H PRN PRN Reason: SBP > 180 Sodium Chloride (Normal Saline 0.9%) 1,000 mls @ 100 mls/hr IV .Q10H [facility] Last Admin: 03/31/18 12:27 Dose: 1,000 mls Ondansetron HCl (Zofran) 4 mg IVP Q6H PRN PRN Reason: Nausea/Vomiting Last Admin: 03/31/18 12:43 Dose: 4 mg Pantoprazole Sodium (Protonix) 40 mg IVP Q12HR [facility] Pantoprazole Sodium (Protonix) 40 mg IVP 1300 [facility] Stop: 03/31/18 17:00 Sodium Chloride (Flush - Normal Saline) 10 ml IVF Q12HR [facility] Sodium Chloride (Flush - Normal Saline) 10 ml IVF PRN PRN PRN Reason: Saline Flush
[2018-03-31] MEDS ORDERED: PROPOFOL 200 MG/20 ML VIAL ONE ×2 (15:13→15:14)
[2018-03-31] MEDS ORDERED: Succinylcholine Chloride 20 MG/ML 10 ml SYRINGE FS ONE (15:13)
[2018-03-31] MEDS ORDERED: PHENYLEPHRINE-NS 100 MCG/ML 10 ML SYRINGE ONE (15:13)
[2018-03-31] MEDS ORDERED: Lidocaine 1% PF 5 ML VIAL ONE ×2 (15:13→15:14)
[2018-03-31] MEDS: fentaNYL 75 mcg/hour Patch TD SCH (15:14)
[2018-03-31] MEDS ORDERED: chlorproMAZINE HCl 25 MG in Sodium Chloride 0.9% 50 ML IVPB PRN (15:15)
--- NOTE | 2018-03-31 16:16 | CON ---
DATE OF CONSULTATION: 03/31/2018 REASON FOR CONSULTATION: Colon cancer. HISTORY OF PRESENT ILLNESS: Mr. Solorzano is a pleasant 43-year-old male who has metastatic colon canc er. He is managed with [facility] and Dr. Arredondo. He has a longstanding Crohn's disease and pre sented at time of diagnosis with high grade obstruction. Unfortunately, he had peritoneal carcinomat osis, which prevented surgical resection. He did, however, have an ileostomy. Most recently, he was started on Erbitux and irinotecan for progression on CT scan at [facility] in February. Since February, he has complained of dysphagia with a several pounds weight loss. Whenever he swallows, he feels lik e he get stuck in his esophagus. He then has emesis shortly thereafter. His output in his ileostomy has remained the same. He was given Protonix for reflux approximately 10 days ago when I saw him in the clinic. He presented yesterday for treatment and was significantly weaker with dizziness and abbott d had no solid food over the past 7 days. He was admitted for dysphagia and to rule out esophageal s tricture. On admission, he was noted to have a sodium of 119 and an acute kidney injury with creatin ine of 2.38. He was started on IV fluids and GI was consulted for evaluation. PAST MEDICAL HISTORY: Metastatic colon cancer, recent dysphagia and weight loss. PAST SURGICAL HISTORY: 1. Hemicolectomy. 2. Ileostomy. ALLERGIES: No known drug allergies. HOME MEDICATIONS: 1. Minocycline 100 mg b.i.d. 2. MS Contin 30 mg b.i.d. 3. [place] 10/325, 1-2 p.r.n. pain. 4. Protonix 40 mg daily. FAMILY HISTORY: Noncontributory. SOCIAL HISTORY: He is , has one child. Lives with his spouse. No alcohol, tobacco or illici t drug use. Works at [employer]. REVIEW OF SYSTEMS: Constitutional: No fever, chills, night sweats. Eyes: No blurred or double vis ion. ENT: No pain, hoarseness, sore throat. Positive for dysphagia. Cardiovascular: No chest simin n, palpitations, syncope. Respiratory: No shortness of breath, dyspnea on exertion, orthopnea or co ugh. Gastrointestinal: Positive for abdominal pain and bloating. Genitourinary: No dysuria or hem aturia. Musculoskeletal: No joint or back pain. Skin: No rash or pruritus. Hematologic: No blee ding, bruising or clotting. Neurologic: Positive for weakness, no headache, numbness, tingling or s eizure activity. Psychiatric: Positive for depression. PHYSICAL EXAMINATION: VITAL SIGNS: Temperature is 97.8, pulse is 107, respiratory rate 20, BP is 114/103. He is 98% on ro om air. GENERAL: A cachectic male, in no acute distress. HEENT: Normocephalic, atraumatic. Pupils equal and reactive to light. NECK: Supple. HEART: Regular rate and rhythm. He has tachycardia. LUNGS: Clear. ABDOMEN: Firm, nontender. He has ileostomy in his left lower quadrant. EXTREMITIES: No clubbing, cyanosis or edema. SKIN: No rash. HEMATOLOGIC: No petechia or purpura. NEUROLOGICAL: Nonfocal. PSYCHIATRIC: The patient is alert and oriented and appropriate. PERTINENT LABORATORY AND X-RAYS: Current WBCs are 14.5, hemoglobin 12.9, hematocrit 40.2, platelet c ount 676,000. He has got 62% neutrophils, 19% bands, 6% lymphocytes. Sodium is 126, potassium 4.3, chloride 90, CO2 is 25, BUN is 38, creatinine is 1.2, total bilirubin is 0.4, AST is 29, ALT 21, jorge line phosphatase is 147. Serum total protein 7.2, albumin 3.6, globulin 3.6. IMPRESSION: 1. Metastatic colon cancer. 2. Dysphagia with weight loss. 3. Abdominal pain. DISCUSSION: The patient has been seen by GI who performed endoscopy this morning and results are unk nown to me. He is going down for a CT scan of his abdomen. He has continued pain. We will add a fe ntanyl patch and continue fentanyl p.r.n. His hyponatremia has improved. He remains on IV fluids. We appreciate GI's assistance and we will follow his hospital course closely.
--- NOTE | 2018-03-31 16:30 | CT ---
CT ABDOMEN WITH CONTRAST CT PELVIS WITH CONTRAST: DATE: 03/31/18. TIME: 2:01 p.m. HISTORY: A 43-year-old male with metastatic colon cancer who presents with abdominal distention, abdominal simin n, nausea, and vomiting. Dr. Mejia discussed the findings, especially the left high grade obstructive uropathy by telephone with Dr. Childers at 2:55 p.m. on 03-31-18. COMPARISON: CT of 09/15/17, and limited images of the PET scan of 12/22/17. TECHNIQUE: IV injection of iodinated contrast media: 75 mL of Isovue-370. Oral contrast media: P.o. Isovue. FINDINGS: There is a new finding of a moderate to large volume of free intraperitoneal fluid throughout much of the abdominal cavity and pelvic cavity, except for relatively sparing of the right upper quadrant. There is another new finding of severe left hydroureter and moderate-severe left hydronephrosis. The re is delayed left nephrogram. The dilated left ureter is caused by an obstructing, spiculated, soft tissue attenuation approximately 2 x 2 x 1.5 cm mass within the left pelvic cavity (axial image 61 o f 84, series 2; coronal image 74 of 115, series 601), slightly proximal to the UVJ. The urinary blad carlos appears unremarkable. The anterior abdominal wall midline FDG-avid mass, which previously measured approximately 4 x 4.5 cm on the attenuation correction CT of 12/22/17, and measured approximately 4 x 4 x 5 cm on 09/15/17, cur rently measures approximately 4.5 x 4 x 2.5 cm. It has a component that deeply extends into the ante rior peritoneal cavity, mildly displacing adjacent small bowel loops, and an anterior component that extends into the subcutaneous fat, and into the dermis. It is located a few centimeters inferior to the inferior edge of the left lobe of the liver. The FDG-avid approximately 2 cm mass in the right lobe of the liver in hepatic segment 8, located levon trally, abutting the lateral aspect of the intrahepatic inferior vena cava, has grown, currently shon uring approximately 3.5 x 1.5 x 2.5 cm. It contains a small central calcification. The gallbladder is severely contracted, and has diffuse mural thickening and mural enhancement. Ther e is no portal vein thrombosis. No new metastatic hepatic lesions are identified. Lung bases are gr ossly clear. No pleural effusion. No destructive osseous lesion identified. Normal abdominal aorta , adrenals, spleen, and pancreas. Colostomy is again noted in the right upper quadrant inferior to t he liver. In the contralateral right kidney, there is a new finding of mild right hydronephrosis. There also a re 2 small right renal calculi, approximately 3 mm in size each, one at a mid pole calyx and another at a lower pole calyx. There is a small region of heterogeneously decreased enhancement at the later al aspect of the right renal upper pole parenchyma, new since the prior study (best appreciated on co maría image 82 of 150, series 601). Etiology and significance of this is uncertain. IMPRESSION: 1. New finding of severe left obstructive uropathy with moderate to severe left hydroureteronephrosi s due to a new small intrapelvic mass obstructing the distal left ureter. 2. New finding of moderate to large volume of ascites. 3. Mild right hydronephrosis. 4. Mild right nephrolithiasis (calculus of kidney). 5. Metastatic mass at midline in the anterior upper abdominal wall. 6. Right colostomy. 7. Right hepatic lobe metastatic mass. CODE CR JN R POS: [facility]
[2018-03-31 16:40] LABS: Prothrombin Time 13.5 SEC (12.0-14.7)
[2018-03-31 16:41] LABS: PTT 28.6 SEC (22.9-36.1)
[2018-03-31] MEDS ORDERED: Fentanyl 100 MCG/2 ML VIAL ONE (20:20)
--- NOTE | 2018-03-31 20:49 | CON ---
DATE OF CONSULTATION: 03/31/2018 REASON FOR CONSULTATION: Left-sided hydronephrosis and hydroureter in context of metastatic colon ca ncer. HISTORY OF PRESENT ILLNESS: Mr. Kevin Solorzano is a pleasant 43-year-old white male with an u nfortunate history of a stage T4 N2 M1 adenocarcinoma of the colon. He has been undergoing chemother apy for that. The patient has developed significant cachexia and left back pain as well as ascites. The patient has been having progressive difficulty with swallowing as well. The patient's lost abou t 30 pounds over the last month. He was undergoing evaluation today by CT scanning when his left-juan luis ed hydroureter and hydronephrosis were noted, and I was consulted to evaluate and assess the patient with regard to that. This patient is currently undergoing chemotherapy appropriate drainage is indic ated. REVIEW OF SYSTEMS: Constitutional: The patient experienced unintentional weight loss of about 30 po unds over the last month. No complaints of fever or chills. Head, Ears, Nose, and Throat: The ritchie ent had some dizziness, but has no complaints of upper respiratory infection, sore throat or other is sues. Pulmonary: No complaints of hemoptysis. No current cough or wheezing. Cardiovascular: No c hest pain, no orthopnea. Gastrointestinal: The patient does report weight loss, difficulty swallowi ng, and general anorexia. Genitourinary: No complaints of gross hematuria. No significant obstruct yahir voiding symptoms in the recent past. PAST MEDICAL HISTORY: 1. Stage IV adenocarcinoma of the colon diagnosed about 18 months ago. 2. History of Crohn's disease. PAST SURGICAL HISTORY: 1. Bowel resection with colostomy. 2. MediPort placement for chemotherapy administration. ALLERGIES: No known drug allergies. MEDICATION LIST: As per chart. SOCIAL HISTORY: The patient is with one child. He is a nondrinker and nonsmoker. FAMILY MEDICAL HISTORY: Negative for disorders and inheritable disorders. PHYSICAL EXAMINATION. VITAL SIGNS: Afebrile, saturations 97.8, pulse is 107, respirations 20, O2 saturations 97% on room a ir. The patient's blood pressure 114/103. HEAD, EARS, EYES, NOSE AND THROAT: Extraocular movements are intact. Sclerae are anicteric. Oropha rynx is clear. NECK: Supple. LUNGS: Clear to auscultation bilaterally. CARDIAC: There is a tachycardic but regular rhythm. ABDOMEN: Soft, but somewhat distended. There appears to be a fluid wave present. There is a midlin e surgical incisional scar compatible with patient's known history of previous colon resection. Ther e is a right-sided colostomy bag, which contained air at the present time. The patient has an access MediPort on his left chest wall. GENITOURINARY: The patient's testes are found bilaterally in the scrotum. They are smooth, anodular , nontender. Phallus is without external lesion. Urethral meatus appears slightly narrowed. RECTAL: Digital rectal examination was not performed in the setting and will be performed during his operative procedure. RADIOLOGIC STUDIES: A CT scan of the abdomen and pelvis was obtained on 03/31/2018 demonstrates the patient having a fair amount of ascites in his abdomen. The bladder is partially compressed by this. There appears to be a possible mass in the retroperitoneal space on the left side. The patient's b owels are outlined by ascites fluid. The patient's left ureter is distended consistent with hydroure ter. This extends from mid pelvis to the retroperitoneal space below the kidney and the kidney itsel f, and the left side is hydronephrotic. No similar findings observed on the right side. LABORATORY STUDIES: The patient's white count remains elevated today at 14.5 thousand, hemoglobin is 12.9 with hematocrit of 40.2, platelet count is 676. Serum chemistry shows the patient's blood urea nitrogen today at 38 with a creatinine of 1.2, down from blood urea nitrogen of 58 and creatinine of 2.38 yesterday. All these numbers appear relatively elevated. Estimated GFR increased to 67 today from a previous EGFR of 30 yesterday. ASSESSMENT AND PLAN: Left ureteral obstruction likely to colon mass. Discussed with the patient lamont ious options including percutaneous nephrostomy tube, nephroureteral stent and cystoscopy with stent placement. He prefers the latter option in the initial opening maneuver. We will plan on proceeding with cystoscopy and stent placement on the patient's left side today with retrograde pyelography. Over 50 minutes of initial consultation assessment time was spent in evaluation and assessment of thi s patient today.
[2018-03-31] MEDS ORDERED: Iothalamate Meglumine 60% 50 ML VIAL FS ONE (20:56)
[2018-03-31] MEDS ORDERED: B & O ONE (20:56)
--- NOTE | 2018-03-31 21:25 | RAD ---
XR IVP RETROGRADE 03/31/18 HISTORY: Stent placement. COMPARISON: None. FINDINGS: On the first exam, there is contrast in the urinary bladder. Retrograde urethrogram was done with sev ere dilatation of the intra and extrarenal left collecting system with tortuosity of the ureter. Ther e is blunting of the calyces. Satisfactory appearance of a double-J ureteral stent. IMPRESSION: Satisfactory appearance of double-J left ureteral stent. POS: [facility]
[2018-03-31] MEDS ORDERED: Ondansetron HCl/PF 4 MG/2 ML Vial IVP PRN (21:37)
[2018-03-31] MEDS ORDERED: Promethazine HCl 25 MG/ML VIAL SLOW IVP PRN (21:37)
[2018-03-31] MEDS ORDERED: Promethazine HCl 25 MG/ML VIAL IM PRN (21:37)
[2018-03-31] MEDS: Pantoprazole 40 MG VIAL IVP SCH (23:03)
[2018-04-01] MEDS: Fentanyl 100 MCG/2 ML VIAL SLOW IVP PRN ×2 (04:03→20:24)
[2018-04-01 05:49] LABS: Anion Gap 13 mmol/L (10-20); BUN (Urea Nitrogen) 25 mg/dL (8.9-20.6); Calc. Creatinine Clearance 72 mL/min (70-130); Calcium 8.3 mg/dL (7.8-10.44); Carbon Dioxide 26 mmol/L (22-29); Chloride 94 mmol/L (98-107); Estimated GFR-MDRD Greater than 90; Glucose 82 mg/dL (70-105); Potassium 3.7 mmol/L (3.5-5.1); Sodium 129 mmol/L (136-145)
[2018-04-01 06:10] LABS: Band 14 % (5-11); Eosinophils 2 % (0-10); Lymphocytes 7 % (21-51); MDiff Complete? YES; Mean Corpuscular HGB CONC 32.2 g/dL (32.0-36.0); Mean Corpuscular Hemoglobin 27.7 pg (27.0-31.0); Mean Platelet Volume 5.6 fL (7.4-10.4); Metamyelocyte 3 % (0-0); Monocytes 8 % (0-10); Myelocyte 1 % (0-0); Neutrophil 65 % (42-75); PLT Morphology Comment Appears Increased; Platelet Count 594 thou/uL (130-400); RBC Distribution Width 14.7 % (11.5-14.5); RBC Morphology Normal; Red Blood Cell (RBC) Count 3.99 mill/uL (4.70-6.10); White Blood Cell (WBC) Count 14.6 thou/uL (4.8-10.8)
--- NOTE | 2018-04-01 07:28 | OP ---
DATE OF ADMISSION: 04/01/2018 DATE OF PROCEDURE: 03/31/2018 PREOPERATIVE DIAGNOSES: 1. Left hydronephrosis. 2. Left hydroureter. 3. Metastatic colon cancer, stage IV. 4. Left ureteral obstruction secondary to metastatic cancer of the colon. POSTOPERATIVE DIAGNOSES: 1. Left hydronephrosis. 2. Left hydroureter. 3. Metastatic colon cancer, stage IV. 4. Left ureteral obstruction secondary to metastatic cancer of the colon. OPERATIVE PROCEDURES PERFORMED: 1. Cystourethroscopy with left-sided stent placement, 71454, left. 2. Cystourethroscopy with left-sided retrograde pyelography, 91749 also left. SURGEON: Kadeem Martínez M.D. MEDICATION AIDE: None. ANESTHESIA: General by endotracheal means. ESTIMATED BLOOD LOSS: For the procedure is less than 5 mL. SPECIMENS REMOVED: Left ureteral urine for culture. Patient has a dark, almost motor oil like urine in the left ureter consistent with some degree of passed hemorrhage into the left collecting system. BRIEF HISTORY AND INDICATION FOR PROCEDURE: Mr. Kevin Solorzano is a pleasant 43-year-old white male with an unfortunate history of stage IV colon cancer and a new presentation of left ureteral obstruct ion. He elected to proceed to operating room today for stent placement on the left side. TECHNICAL PROCEDURE: Patient was appropriately identified in the preoperative holding area and subse quently brought to the operative suite, placed in the supine position. General anesthesia was establ ished using endotracheal means. The patient was repositioned in the supine lithotomy position and pr epped and draped in usual sterile fashion. Cystoscopic evaluation was performed in combination with fluoroscopy. After appropriate time out, patient's urethra was examined with a 22-Namibian cystoscope sheath and a 30-degree lens. There were no significant obstructive strictures. Patient's urinary sp hincter was open at rest. Patient's prostate gland did not appear obstructed. Patient's bladder was then entered. There were some particulates present at the patient's bladder and this was rinsed negin ar. Fluorographic assessment showed residual contrast from the patient's CT scan performed earlier i n the day within the patient's bladder and the collecting system of the left and right kidney. Persi stent nephrogram slightly more prominent on the patient's left side. The bladder was evaluated, we f ound no tumors or lesions. After panendoscopic evaluation, we identified the patient's left ureteric opening. There was peristaltic motion, but no evidence of efflux. We accessed the ureteric opening using a 0.038-angled Glidewire and a 5-Namibian Pollack catheter. We noted several levels of obstruct ion distally including near the bladder slightly above the bladder and in the upper mid ureter. We w ere able to advance the 5-Namibian Pollack catheter up into the patient's upper collecting system and d id aspirate fluid, which had a dark, used motor oil appearance. Patient then underwent retrograde py elography on the left side demonstrating tortuous and large dilated ureter on the left side as well a s hydronephrosis. We then placed a 6 Namibian x 26 cm double-J ureteral stent in the patient's left ur eter, we utilized a Polaris double pigtail stent. This drained the same type of material that we saw on aspiration of the patient's left ureter. Good coil was obtained in the patient's renal pel vis and in the patient's bladder. Patient's bladder was drained completely. A belladonna and opioid suppository was applied per rectum at the close of the case. A Digital rectal examination finds rel atively small prostate gland with no sinister features. Patient was returned to full supine position , was extubated in the operative suite, tolerated the procedure well. COMPLICATIONS: None. SPECIMENS: Urine from the patient's left ureter for Gram stain and culture. NEW DRAINS AND TUBES: 6 Namibian x 26 cm Polaris stent in the left ureter. COMPLICATIONS: None apparent.
[2018-04-01] MEDS: Sodium Chloride 0.9% 1,000 ML IV SCH ×3 (08:03→14:54)
[2018-04-01] MEDS: Pantoprazole 40 MG VIAL IVP SCH ×2 (08:48→20:19)
[2018-04-01] MEDS: Enoxaparin Sodium 40 MG/0.4 ML SYRINGE SC SCH (08:49)
[2018-04-01] MEDS ORDERED: Dextrose 5 %-0.45 % NaCl 1,000 ML IV SCH (11:45)
--- NOTE | 2018-04-01 13:58 | ULT ---
PROCEDURE NOTE: PREPROCEDURE DIAGNOSIS: Ascites. POSTPROCEDURE DIAGNOSIS: Ascites. PROCEDURE: Ultrasound-guided paracentesis. BUSINESS PROJECT MANAGER: Dr. Pfeiffer. COMPLICATIONS: None. SPECIMEN: 2 liters of straw colored fluid. ANESTHESIA: 5 mL of buffered 1% Lidocaine. TECHNIQUE: Prior to the procedure, the risks and benefits of an ultrasound-guided paracentesis were explained wi th the patient and he consented fully to the procedure. An ultrasound was used to identify the largest fluid collection in the left lower quadrant of the abd omen. The patient had an ostomy in the right abdomen and the right abdomen could not be used. The s kin in this region was then prepped and draped in the usual sterile fashion. Lidocaine was used to anesthetize the skin and soft tissues down towards the peritoneal cavity. A sm all skin incision was made allowing for passage of a Yueh needle and catheter. The Yueh needle and catheter were placed under ultrasound guidance into the peritoneum. The needle w as then removed and the catheter left in place. This catheter was then connected to multiple vacutai ner bottles. A total of 2 liters was removed. No residual ascites was seen in the left lower quadra nt of the abdomen after the paracentesis. IMPRESSION: Status post successful ultrasound-guided paracentesis. POS: [facility]
--- NOTE | 2018-04-01 14:17 | PDOC.PN ---
- Subjective Encounter Start Date: 04/01/18 Encounter Start Time: 14:16 Subjective: feels better. able to tolerated juices and water.scared to try solids -: no AP/N/V/D.no fever - Objective Resuscitation Status: Resuscitation Status FULL:Full Resuscitation MAR Reviewed: Yes Vital Signs & Weight: Vital Signs (12 hours) Temp Pulse Resp BP BP Pulse Ox 04/01/18 13:14 97.5 F L 107 H 20 157/102 H 99 04/01/18 12:30 120 H 18 165/105 H 04/01/18 11:48 98.2 F 116 H 18 136/103 H 98 04/01/18 08:00 98.1 F 115 H 18 97 04/01/18 07:33 98.1 F 115 H 18 140/92 H 97 04/01/18 03:55 97.7 F 105 H 16 128/81 98 04/01/18 02:49 116 H 16 135/91 H Weight Admit Weight 98 lb Weight 98 lb I&O: 03/31/18 04/01/18 04/02/18 06:59 06:59 06:59 Intake Total 400 1050.25 Output Total 450 Balance 400 600.25 Result Diagrams: 04/01/18 05:27 04/01/18 05:27 Additional Labs: Microbiology 03/31/18 21:00 Urine Straight Catheter Urine Culture - Preliminary NO GROWTH AT 12 HOURS Laboratory Tests 03/30/18 03/31/18 04/01/18 14:33 10:07 05:27 Creatinine 2.38 H 1.20 0.85 Phys Exam - Physical Examination Constitutional: NAD cachectic HEENT: PERRLA, moist MMs, sclera anicteric, oral pharynx no lesions Neck: no nodes, no JVD, supple, full ROM Respiratory: no wheezing, no rales, no rhonchi, clear to auscultation bilateral Cardiovascular: RRR, no significant murmur, no rub Gastrointestinal: soft, non-tender, positive bowel sounds distended w +ve fluid wave Musculoskeletal: no edema, pulses present Neurological: non-focal, normal sensation, moves all 4 limbs Psychiatric: normal affect, A&O x 3 Skin: no rash Dx/Plan (1) Hyponatremia Code(s): E87.1 - HYPO-OSMOLALITY AND HYPONATREMIA Status: Acute Comment: Continue IV NS, recheck sodium level. (2) Dysphagia Code(s): R13.10 - DYSPHAGIA, UNSPECIFIED Status: Acute Comment: EGD done- formal report pending.normal per patient (3) Hydronephrosis, left Code(s): N13.30 - UNSPECIFIED HYDRONEPHROSIS Status: Acute Comment: s/p Left uretheral stent 03/31/18 (4) PATRICIA (acute kidney injury) Code(s): N17.9 - ACUTE KIDNEY FAILURE, UNSPECIFIED Status: Resolved Comment : Likely prerenal, hydrate and recheck creatinine (5) Ascites Code(s): R18.8 - OTHER ASCITES Status: Acute Comment: paracentesis today .ashly d/y peritoneal carcinomatosis. Sent for Cx /GS (6) Peritoneal carcinomatosis Code(s): C78.6 - SECONDARY MALIGNANT NEOPLASM OF RETROPERITON AND PERITONEUM; C80.1 - MALIGNANT (PRIMARY) NEOPLASM, UNSPECIFIED Status: Acute (7) Crohns disease Code(s): K50.90 - CROHN'S DISEASE, UNSPECIFIED, WITHOUT COMPLICATIONS Status: Chronic (8) Severe protein-calorie malnutrition Code(s): E43 - UNSPECIFIED SEVERE PROTEIN-CALORIE MALNUTRITION Status: Chronic Comment: consult dietitian (9) Metastasis from colon cancer Code(s): C79.9 - SECONDARY MALIGNANT NEOPLASM OF UNSPECIFIED SITE; C18.9 - MALIGNANT NEOPLASM OF COLON, UNSPECIFIED Status: Chronic - Plan PT/OT, out of bed/ambulate, DVT proph w/SCDs encourgae Po intake. Full liquid diet -: follow final Cx results.follow ascitic fluid results -: sodium and renal Fx improved.cont NS and recheck in am -: Appreciate GI,Oncology & urology input -: HD stable * . Review of Systems - Review of Systems Constitutional: weakness. negative: fever, chills, sweats, malaise, other ENT: negative: Ear Pain, Ear Discharge, Nose Pain, Nose Discharge, Nose Congestion, Mouth Pain, Mouth Swelling, Throat Pain, Throat Swelling, Other Respiratory: negative: Cough, Dry, Shortness of Breath, Hemoptysis, SOB with Excertion, Pleuritic Pain, Sputum, Wheezing Cardiovascular: negative: chest pain, palpitations, orthopnea, paroxysmal nocturnal dyspnea, edema, light headedness, other Gastrointestinal: Other (difficulty swollowing). negative: Nausea, Vomiting, Abdominal Pain, Diarrhea, Constipation, Melena, Hematochezia Genitourinary: negative: Dysuria, Frequency, Incontinence, Hematuria, Retention , Other Musculoskeletal: negative: Neck Pain, Shoulder Pain, Arm Pain, Back Pain, Hand Pain, Leg Pain, Foot Pain, Other Skin: negative: Rash, Lesions, Jaren, Bruising, Other Neurological: negative: Weakness, Numbness, Incoordination, Change in Speech, Confusion, Seizures, Other - Medications/Allergies Allergies/Adverse Reactions: Allergies Allergy/AdvReac Type Severity Reaction Status Date / Time No Known Allergies Allergy Verified 04/21/17 14:23 Medications: Current Medications Acetaminophen (Tylenol) 650 mg PO Q4H PRN PRN Reason: Headache/Fever or Pain Clonidine (Catapres) 0.1 mg PO Q4H PRN PRN Reason: Systolic BP > 180 Last Admin: 03/30/18 17:39 Dose: 0.1 mg Enoxaparin Sodium (Lovenox) 40 mg SC 0900 [facility] Last Admin: 04/01/18 08:49 Dose: Not Given Fentanyl (Sublimaze) 12.5 mcg SLOW IVP Q6H PRN PRN Reason: Pain Last Admin: 04/01/18 04:03 Dose: 12.5 mcg Fentanyl (Duragesic) 75 mcg TD Q3D [facility] Last Admin: 03/31/18 15:14 Dose: 75 mcg Hydralazine HCl (Apresoline) 10 mg SLOW IVP Q6H PRN PRN Reason: SBP > 180 Chlorpromazine HCl 25 mg/ (Sodium Chloride) 51 mls @ 102 mls/hr IVPB Q6H PRN PRN Reason: Hiccups Last Admin: 03/31/18 16:19 Dose: 51 mls Dextrose/Sodium Chloride (D5 1/2 Ns) 1,000 mls @ 75 mls/hr IV .[id number] [facility] Last Admin: 04/01/18 12:23 Dose: 1,000 mls Ondansetron HCl (Zofran) 4 mg IVP Q6H PRN PRN Reason: Nausea/Vomiting Last Admin: 03/31/18 12:43 Dose: 4 mg Pantoprazole Sodium (Protonix) 40 mg IVP Q12HR [facility] Last Admin: 04/01/18 08:48 Dose: 40 mg Sodium Chloride (Flush - Normal Saline) 10 ml IVF Q12HR [facility] Last Admin: 04/01/18 08:48 Dose: 10 ml Sodium Chloride (Flush - Normal Saline) 10 ml IVF PRN PRN PRN Reason: Saline Flush
[2018-04-01 14:57] LABS: BF Color Yellow; Body Fluid Source Ascites Body Fluid; Clarity Cloudy/Turbid (Clear); Tube # EDTA
[2018-04-01 15:01] LABS: BF RBC Count - Manual 36 /cumm; BF WBC/Nonhematics Ct. - Manua 73 /cumm
[2018-04-01 15:26] LABS: BF Segmented Neutrophils 39 %; Cell Count Non Hematic 41 %; Eosinophils 1 %; Lymphocytes 19 %
[2018-04-01] MEDS ORDERED: Fluconazole 100 MG TAB PO SCH (16:45)
--- NOTE | 2018-04-01 17:54 | PRG ---
DATE OF SERVICE: 04/01/2018 SUBJECTIVE: Kevin underwent left ureteral stent placement last night and 2 liters paracentesis toda y. He is currently up and about, and says he is feeling a whole lot better. There is no nausea or a bdominal pain at this time. He feels his abdominal distention is less. He still has ileostomy outpu t. He has tolerated clear liquids and started to have some full liquid diet today and is doing well with this so far. Esophageal biopsies came back showing a few pseudohyphae consistent with Michelle e sophagitis. OBJECTIVE: VITAL SIGNS: Temperature 98.4, pulse 103, blood pressure 136/101, 98% oxygen saturation on room air. GENERAL: Cachectic, but nontoxic, walking around room in no distress, in good spirits. HEART: Regular rate and rhythm. LUNGS: Clear to auscultation bilaterally. ABDOMEN: Mild distention, soft and nontender. EXTREMITIES: No peripheral edema. LABORATORY STUDIES: WBC 14.6, hemoglobin 11.0, platelets 594. Sodium 129, potassium 3.7, BUN 25, cr eatinine 0.85. Ascites fluid was cloudy, but only 73 WBCs, 39% neutrophils, so this does not meet cr iteria for bacterial peritonitis. Fluid total protein was 4.1, LDH 434, amylase 25. ASSESSMENT AND PLAN: 1. Dysphagia. 2. Michelle esophagitis. It is unclear to what extent the esophagitis is contributing to all of his symptoms, but I do think it would be worth treating the Michelle infection. We will start him out on a 2 week course of oral fluconazole. 3. Stage IV colon cancer with metastatic disease to multiple areas of the peritoneum. Long-term pro gnosis remains extremely poor. He has continued with chemotherapy per Oncology recommendations. Unf ortunately, it would seem his disease is progressive on the chemotherapy. 4. Crohn disease, small and large bowel. He does not have any evidence of bowel obstruction, clinic ally or by CT. His ileostomy is functioning properly. 5. Ascites. Suspect this is a malignant ascites. He is feeling a lot better after 2 liters of para centesis. I would recommend he continue to slowly advance his diet as tolerated. No plan for any further GI in vestigations or interventions at this time. He understands that long-term prognosis remains quite po or. If he were unable to tolerate enough oral intake to meet his nutritional and hydration needs, th en I think hospice would be an appropriate course of action at that point. Hopefully, he will be abl e to increase his oral intake.
--- NOTE | 2018-04-01 19:54 | PRG ---
DATE OF INITIAL CONSULTATION: 03/31/2018 DATE OF SERVICE: 04/01/2018 INITIAL REASON FOR CONSULTATION: Left-sided hydronephrosis and hydroureter in the context of metasta tic colon cancer. BRIEF HISTORY: Mr. Kevin Solorzano is a pleasant 43-year-old white male with an unfortunate hi story of stage T4 N2 M1 adenocarcinoma of the colon, developed a left-sided obstruction secondary to a pelvic mass and elected to proceed with cystoscopy and stent placement yesterday. The patient did undergo a stent placement. He did have an obstructing the area within the pelvis and several additio nal obstructions at higher levels. The patient's ureter was filled with dark-colored urine suggestiv e of previous bleed with lysis of the red cells. We did aspirate some and then sent for culture and the results of that are not yet available. The patient reports that he feels significantly better to day. He was having significant left-sided pain prior to the stent placement and reports near complet e resolution of the symptoms. He is not reporting current stent discomfort. The patient does note t hat he has dark-colored urine, which roughly looks about the density of Coca [employer] today. This would be expected given the findings from the patient's left ureter. Overall, he is feeling much better an d is not having any pain complaints today. PHYSICAL EXAMINATION: VITAL SIGNS: Temperature is 98.1, pulse is 115, respirations 18, O2 saturations 97% on room air, blo od pressure is 140/92. GENERAL: This is a pleasant, awake, alert, white male in no distress. He is relatively cachectic se condary to his weight loss due to his current medical condition, otherwise seems to be doing well. HEAD, EYES, EARS, NOSE AND THROAT: Extraocular movements are intact. Sclerae are anicteric. Oropha rynx is clear. NECK: Supple. LUNGS: Clear to auscultation bilaterally. CARDIAC: Regular rate and rhythm. ABDOMEN: Distended secondary to ascites. There is a fluid wave present. BACK: There is no costovertebral angle tenderness on either side. GENITOURINARY: The patient is able to void spontaneously on his own. I evaluated the urine present at bedside and this does have dark Cola coloration to it. This would be consistent with the aspirate fluid from the patient's left ureter, which had a motor oil type density. The patient overall appea rs to be doing reasonably well. LABORATORY DATA: White count is 14,600 today with a hemoglobin of 11 and hematocrit of 34.3. Serum chemistries show the patient's blood urea nitrogen today down to 25 from 58 on 03/30/2018. Creatinin e is improved to 0.85 from a previous creatinine of 2.38. Estimated GFR today is greater than 90 mL per minute. ASSESSMENT AND PLAN: 1. Left ureter obstruction secondary to malignant process. The patient will require chronic indwell ing stents, present time he is tolerating his new stent without significant difficulty. He developed bladder spasms, VESIcare or other long-acting bladder spasm medication would be appropriate. At the present time, we have no complaints from the patient and I am not recommending adding bladder spasm agents now. This may well be covered by his current fentanyl patch. 2. Infectious Disease concerns urine was sent for culture and shows no growth at 12 hours, which wou ld be relatively early. The patient and I discussed his long-term plan likely will require chronic indwelling stents, he curr ently has a 6-Venezuelan double-J ureteral stent. I would recommend consideration of upsizing that to 8- Venezuelan in the future. Present time, he barely can accommodate a 5-Venezuelan stent. This may improve wi th time. If the patient develops signs or symptoms of obstruction, which may include new onset left-sided flan k pain, inflammatory changes or a pyelonephritis episode, consideration of stent change will be consi dered. The patient's current urine culture comes back with no growth. I would not recommend routine stent exchange for at least 6 months unless there are symptoms requiring an intervention. The patie millicent may follow up in my office at [facility] as he seems to be well on his way to improving, this can be made in for 4 or 5 months' time to schedule a potential stent exchange.
[2018-04-02] MEDS: Fentanyl 100 MCG/2 ML VIAL SLOW IVP PRN ×2 (03:57→11:51)
[2018-04-02] MEDS: Sodium Chloride 0.9% 1,000 ML IV SCH ×2 (05:01→09:24)
[2018-04-02 05:28] LABS: Anion Gap 9 mmol/L (10-20); BUN (Urea Nitrogen) 11 mg/dL (8.9-20.6); Calc. Creatinine Clearance 96 mL/min (70-130); Calcium 8.3 mg/dL (7.8-10.44); Carbon Dioxide 27 mmol/L (22-29); Chloride 94 mmol/L (98-107); Estimated GFR-MDRD Greater than 90; Glucose 106 mg/dL (70-105); Potassium 3.4 mmol/L (3.5-5.1); Sodium 127 mmol/L (136-145)
[2018-04-02] MEDS ORDERED: Furosemide 20 MG/2 ML VIAL SLOW IVP SCH (08:45)
[2018-04-02] MEDS: Amlodipine 10 MG TAB PO SCH (09:24)
[2018-04-02] MEDS: Enoxaparin Sodium 40 MG/0.4 ML SYRINGE SC SCH (09:24)
[2018-04-02] MEDS: Albumin 25% 25 GM/100 ML BOT IVPB SCH (09:24)
[2018-04-02] MEDS: Pantoprazole 40 MG VIAL IVP SCH ×3 (09:24→20:30)
[2018-04-02] MEDS ORDERED: Potassium Chloride 20 MEQ TAB PO SCH (12:00)
--- NOTE | 2018-04-02 13:02 | PDOC.PN ---
- Subjective Encounter Start Date: 04/02/18 Encounter Start Time: 13:00 Subjective: feels better but feels like abdominal fluid is back,feels bloated -: no AP,nausea.still eating only liquids - Objective Resuscitation Status: Resuscitation Status FULL:Full Resuscitation MAR Reviewed: Yes Vital Signs & Weight: Vital Signs (12 hours) Temp Pulse Resp BP BP Pulse Ox 04/02/18 11:40 98.1 F 114 H 16 135/96 H 96 04/02/18 09:24 110 H 04/02/18 07:57 97.7 F 110 H 16 98 04/02/18 07:29 97.7 F 110 H 16 136/100 H 98 04/02/18 04:01 102 H 175/116 H Weight Admit Weight 98 lb Weight 98 lb I&O: 04/01/18 04/02/18 04/03/18 06:59 06:59 06:59 Intake Total 1050.25 3350 Output Total 450 1650 Balance 600.25 1700 Result Diagrams: 04/01/18 05:27 04/02/18 05:05 Additional Labs: Microbiology 04/01/18 12:00 Peritoneal fluid Body Fluid Culture - Preliminary 03/31/18 21:00 Urine Straight Catheter Urine Culture - Preliminary NO GROWTH AT 12 HOURS Laboratory Tests 03/30/18 03/31/18 04/01/18 14:33 10:07 05:27 Sodium 119 L* 126 L 129 L Fluid WBC (Manual) Fluid RBC (Manual) Fluid Seg Neutrophil % Fluid Lymphocytes % Non-Hematological % Fluid Total Protein Fluid Albumin Fluid LDH Fluid Amylase 04/01/18 04/01/18 04/01/18 12:00 12:00 12:00 Sodium Fluid WBC (Manual) 73 Fluid RBC (Manual) 36 Fluid Seg Neutrophil % 39 Fluid Lymphocytes % 19 Non-Hematological % 41 Fluid Total Protein Fluid Albumin Fluid LDH 434 Fluid Amylase 25 04/01/18 04/01/18 04/02/18 12:00 14:13 05:05 Sodium 127 L Fluid WBC (Manual) Fluid RBC (Manual) Fluid Seg Neutrophil % Fluid Lymphocytes % Non-Hematological % Fluid Total Protein 4.1 Fluid Albumin 2.7 Fluid LDH Fluid Amylase Phys Exam - Physical Examination Constitutional: NAD HEENT: PERRLA, moist MMs, sclera anicteric, oral pharynx no lesions Neck: no nodes, no JVD, supple, full ROM Respiratory: no wheezing, no rales, no rhonchi, clear to auscultation bilateral Cardiovascular: RRR, no significant murmur, no rub Gastrointestinal: soft, non-tender, positive bowel sounds distended and +ve fluid wave again Musculoskeletal: no edema, pulses present Neurological: non-focal, normal sensation, moves all 4 limbs Psychiatric: normal affect, A&O x 3 Skin: no rash Dx/Plan (1) Hyponatremia Code(s): E87.1 - HYPO-OSMOLALITY AND HYPONATREMIA Status: Acute Comment: ashly due to third spacing. (2) Hypokalemia Code(s): E87.6 - HYPOKALEMIA Status: Acute (3) Dysphagia Code(s): R13.10 - DYSPHAGIA, UNSPECIFIED Status: Acute Comment: EGD done- herbert esophagitis.started on Diflucan (4) Hydronephrosis, left Code(s): N13.30 - UNSPECIFIED HYDRONEPHROSIS Status: Acute Comment: s/p Left uretheral stent 03/31/18 (5) PATRICIA (acute kidney injury) Code(s): N17.9 - ACUTE KIDNEY FAILURE, UNSPECIFIED Status: Resolved Comment : Likely prerenal, hydrate and recheck creatinine (6) Ascites Code(s): R18.8 - OTHER ASCITES Status: Acute Comment: paracentesis 04/01/18 with 2 L fluid removal .ashly d/t peritoneal carcinomatosis. Sent for Cx /GS (7) Peritoneal carcinomatosis Code(s): C78.6 - SECONDARY MALIGNANT NEOPLASM OF RETROPERITON AND PERITONEUM; C80.1 - MALIGNANT (PRIMARY) NEOPLASM, UNSPECIFIED Status: Acute (8) Crohns disease Code(s): K50.90 - CROHN'S DISEASE, UNSPECIFIED, WITHOUT COMPLICATIONS Status: Chronic Comment: s/p ileostomy (9) Severe protein-calorie malnutrition Code(s): E43 - UNSPECIFIED SEVERE PROTEIN-CALORIE MALNUTRITION Status: Chronic Comment: consult dietitian (10) Metastasis from colon cancer Code(s): C79.9 - SECONDARY MALIGNANT NEOPLASM OF UNSPECIFIED SITE; C18.9 - MALIGNANT NEOPLASM OF COLON, UNSPECIFIED Status: Chronic - Plan PT/OT, out of bed/ambulate, DVT proph w/SCDs will stop NS as sodium lower w recurrent ascites today.Give [id number]% X 2 -: will give 1 dose of lasix w Potassium supplement for low sodium -: monitor sodium and consult nephrology if still low.poor Po intake contribut -: cont diflucan for herbert esophagitis.encourage Po intake -: may need repeat paracentesis for therapeutic purpose,follow Cx from 1st * BP high.start amlodipine and titrate. * am labs * poor intermediate prognosis Review of Systems - Review of Systems Constitutional: weakness, malaise. negative: fever, chills, sweats, other ENT: negative: Ear Pain, Ear Discharge, Nose Pain, Nose Discharge, Nose Congestion, Mouth Pain, Mouth Swelling, Throat Pain, Throat Swelling, Other Respiratory: negative: Cough, Dry, Shortness of Breath, Hemoptysis, SOB with Excertion, Pleuritic Pain, Sputum, Wheezing Cardiovascular: negative: chest pain, palpitations, orthopnea, paroxysmal nocturnal dyspnea, edema, light headedness, other Gastrointestinal: Other. negative: Nausea, Vomiting, Abdominal Pain, Diarrhea, Constipation, Melena, Hematochezia Genitourinary: negative: Dysuria, Frequency, Incontinence, Hematuria, Retention , Other Musculoskeletal: negative: Neck Pain, Shoulder Pain, Arm Pain, Back Pain, Hand Pain, Leg Pain, Foot Pain, Other Skin: negative: Rash, Lesions, Jaren, Bruising, Other Neurological: negative: Weakness, Numbness, Incoordination, Change in Speech, Confusion, Seizures, Other - Medications/Allergies Allergies/Adverse Reactions: Allergies Allergy/AdvReac Type Severity Reaction Status Date / Time No Known Allergies Allergy Verified 04/21/17 14:23 Medications: Current Medications Acetaminophen (Tylenol) 650 mg PO Q4H PRN PRN Reason: Headache/Fever or Pain Albumin Human (Albumin 25%) 25 gm IVPB DAILY [facility] Stop: 04/03/18 09:01 Last Admin: 04/02/18 09:24 Dose: 25 gm Amlodipine Besylate (Norvasc) 10 mg PO DAILY [facility] Last Admin: 04/02/18 09:24 Dose: 10 mg Clonidine (Catapres) 0.1 mg PO Q4H PRN PRN Reason: Systolic BP > 180 Last Admin: 03/30/18 17:39 Dose: 0.1 mg Enoxaparin Sodium (Lovenox) 40 mg SC 0900 [facility] Last Admin: 04/02/18 09:24 Dose: 40 mg Fentanyl (Sublimaze) 12.5 mcg SLOW IVP Q6H PRN PRN Reason: Pain Last Admin: 04/02/18 11:51 Dose: 12.5 mcg Fentanyl (Duragesic) 75 mcg TD Q3D [facility] Last Admin: 03/31/18 15:14 Dose: 75 mcg Fluconazole (Diflucan) 200 mg PO 1600 [facility] Stop: 04/15/18 23:59 Hydralazine HCl (Apresoline) 10 mg SLOW IVP Q6H PRN PRN Reason: SBP > 180 Last Admin: 04/02/18 04:01 Dose: 10 mg Sodium Chloride (Normal Saline 0.9%) 1,000 mls @ 50 mls/hr IV .Q20H [facility] Last Admin: 04/02/18 09:24 Dose: 1,000 mls Pantoprazole Sodium (Protonix) 40 mg IVP Q12HR [facility] Last Admin: 04/02/18 09:24 Dose: 40 mg Potassium Chloride (Klor-Con) 40 meq PO NOW [facility] Stop: 04/02/18 14:45 Last Admin: 04/02/18 12:58 Dose: 40 meq Sodium Chloride (Flush - Normal Saline) 10 ml IVF Q12HR [facility] Last Admin: 04/02/18 09:25 Dose: 10 ml Sodium Chloride (Flush - Normal Saline) 10 ml IVF PRN PRN PRN Reason: Saline Flush
[2018-04-02] MEDS: Fluconazole 100 MG TAB PO SCH (16:24)
--- NOTE | 2018-04-02 19:53 | PRG ---
DATE OF SERVICE: 04/02/2018 GI INPATIENT DAILY PROGRESS NOTE SUBJECTIVE: Kevin feels about the same today, perhaps a bit worse with continued abdominal bloating . He is nauseated and had a bit of vomiting as well. Ileostomy output has slowed, though bowel soun ds remain present. Transfer to [facility] is planned at some point in the next couple of days. PHYSICAL EXAMINATION: VITAL SIGNS: Temperature 98.1, pulse 114, blood pressure 135/96, 96% oxygen saturation on room air. GENERAL: Cachectic, in no acute distress. HEART: Regular rate and rhythm. LUNGS: Clear to auscultation bilaterally. ABDOMEN: Abdomen remains distended. Bowel sounds are present. Diffuse mild tenderness to palpation . No guarding or rebound tenderness. EXTREMITIES: No peripheral edema. LABORATORY STUDIES: Sodium 127, potassium 3.4, BUN 11, creatinine 0.64. Paracentesis fluid shows 41 % nonhematologic cells with cytology pending. Ascites fluid albumin is 2.7 as compared to serum albu min of 3.6. ASSESSMENT AND PLAN: 1. Stage IV colon cancer with peritoneal carcinomatosis. 2. Malignant ascites. 3. Weight loss and failure to thrive, secondary to malignancy and malignant ascites. 4. Michelle esophagitis. Continue and complete 2 weeks of oral fluconazole treatment. I again discussed with Kevin that prognosis remains poor and current measures are aiming at palliati on, particularly with a view toward his being able to maintain his oral intake. Transfer to [facility] is planned and I think this is a good idea. Perhaps an abdominal drain could be considered as a palliative measure for his malignant ascites.
[2018-04-02] MEDS: Hydrocodone-Acetamin 15 ML UDCUP PO PRN (22:13)
[2018-04-03] MEDS: Sodium Chloride 0.9% 1,000 ML IV SCH (03:57)
[2018-04-03] MEDS: Hydrocodone-Acetamin 15 ML UDCUP PO PRN ×3 (04:15→18:31)
[2018-04-03 06:24] LABS: Anion Gap 13 mmol/L (10-20); BUN (Urea Nitrogen) 13 mg/dL (8.9-20.6); Calc. Creatinine Clearance 79 mL/min (70-130); Carbon Dioxide 28 mmol/L (22-29); Chloride 91 mmol/L (98-107); Estimated GFR-MDRD Greater than 90; Glucose 100 mg/dL (70-105); Sodium 128 mmol/L (136-145)
[2018-04-03] MEDS: Enoxaparin Sodium 40 MG/0.4 ML SYRINGE SC SCH (10:37)
[2018-04-03] MEDS: Pantoprazole 40 MG VIAL IVP SCH ×2 (10:37→20:08)
[2018-04-03] MEDS: Amlodipine 10 MG TAB PO SCH (10:37)
[2018-04-03] MEDS: Albumin 25% 25 GM/100 ML BOT IVPB SCH (10:37)
--- NOTE | 2018-04-03 13:55 | PDOC.PN ---
- Subjective Encounter Start Date: 04/03/18 Encounter Start Time: 11:00 Subjective: still has nausea and has not been able to keep anything down -: no abd pain - Objective Resuscitation Status: Resuscitation Status FULL:Full Resuscitation MAR Reviewed: Yes Vital Signs & Weight: Vital Signs (12 hours) Temp Pulse Resp BP Pulse Ox 04/03/18 10:37 121 H 04/03/18 08:00 98.2 F 121 H 20 99 04/03/18 07:33 98.2 F 121 H 20 133/91 H 99 Weight Admit Weight 98 lb Weight 98 lb I&O: 04/02/18 04/03/18 04/04/18 06:59 06:59 06:59 Intake Total 3350 960 Output Total 1650 1400 Balance 1700 -440 Result Diagrams: 04/01/18 05:27 04/03/18 06:05 Phys Exam - Physical Examination HEENT: PERRLA, moist MMs Neck: no JVD, supple Respiratory: no wheezing, no rales Cardiovascular: RRR, no significant murmur Gastrointestinal: soft, non-tender, positive bowel sounds distention+ ascites+ Musculoskeletal: no edema, pulses present Neurological: non-focal, moves all 4 limbs Psychiatric: A&O x 3 Dx/Plan (1) Ascites Code(s): R18.8 - OTHER ASCITES Status: Acute Qualifiers: Ascites type: malignant Qualified Code(s): R18.0 - Malignant ascites Comment: paracentesis 04/01/18 with 2 L fluid removal, d/t peritoneal carcinomatosis. Sent for Cx /GS (2) Dysphagia Code(s): R13.10 - DYSPHAGIA, UNSPECIFIED Status: Acute Comment: EGD done- herbert esophagitis, on Diflucan (3) Hydronephrosis, left Code(s): N13.30 - UNSPECIFIED HYDRONEPHROSIS Status: Acute Comment: s/p Left uretheral stent 03/31/18 (4) Hyponatremia Code(s): E87.1 - HYPO-OSMOLALITY AND HYPONATREMIA Status: Acute (5) Peritoneal carcinomatosis Code(s): C78.6 - SECONDARY MALIGNANT NEOPLASM OF RETROPERITON AND PERITONEUM; C80.1 - MALIGNANT (PRIMARY) NEOPLASM, UNSPECIFIED Status: Acute (6) Colon cancer Code(s): C18.9 - MALIGNANT NEOPLASM OF COLON, UNSPECIFIED Status: Chronic (7) Crohns disease Code(s): K50.90 - CROHN'S DISEASE, UNSPECIFIED, WITHOUT COMPLICATIONS Status: Chronic Comment: h/o ileostomy (8) Severe protein-calorie malnutrition Code(s): E43 - UNSPECIFIED SEVERE PROTEIN-CALORIE MALNUTRITION Status: Chronic - Plan is on fluconazole 200mg daily for a total of 2 weeks per GI advice -: gentle iv hydration, sod around 128 -: fentanyl tts -: renal function is normal now -: poor prognosis * . Review of Systems - Medications/Allergies Allergies/Adverse Reactions: Allergies Allergy/AdvReac Type Severity Reaction Status Date / Time No Known Allergies Allergy Verified 04/21/17 14:23 Medications: Current Medications Acetaminophen (Tylenol) 650 mg PO Q4H PRN PRN Reason: Headache/Fever or Pain Hydrocodone Bitart/Acetaminophen (Hydrocodone-Apap 7.5-325/15) 15 ml PO Q6H PRN PRN Reason: PAIN (7-10) Last Admin: 04/03/18 13:52 Dose: 15 ml Amlodipine Besylate (Norvasc) 10 mg PO DAILY [facility] Last Admin: 04/03/18 10:37 Dose: 10 mg Clonidine (Catapres) 0.1 mg PO Q4H PRN PRN Reason: Systolic BP > 180 Last Admin: 03/30/18 17:39 Dose: 0.1 mg Enoxaparin Sodium (Lovenox) 40 mg SC 0900 [facility] Last Admin: 04/03/18 10:37 Dose: 40 mg Fentanyl (Sublimaze) 12.5 mcg SLOW IVP Q6H PRN PRN Reason: Pain Last Admin: 04/02/18 11:51 Dose: 12.5 mcg Fentanyl (Duragesic) 75 mcg TD Q3D [facility] Last Admin: 03/31/18 15:14 Dose: 75 mcg Fluconazole (Diflucan) 200 mg PO 1600 [facility] Stop: 04/15/18 23:59 Last Admin: 04/02/18 16:24 Dose: 200 mg Hydralazine HCl (Apresoline) 10 mg SLOW IVP Q6H PRN PRN Reason: SBP > 180 Last Admin: 04/02/18 04:01 Dose: 10 mg Sodium Chloride (Normal Saline 0.9%) 1,000 mls @ 50 mls/hr IV .Q20H [facility] Last Admin: 04/03/18 03:57 Dose: Not Given Pantoprazole Sodium (Protonix) 40 mg IVP Q12HR [facility] Last Admin: 04/03/18 10:37 Dose: 40 mg Sodium Chloride (Flush - Normal Saline) 10 ml IVF Q12HR [facility] Last Admin: 04/03/18 10:37 Dose: 10 ml Sodium Chloride (Flush - Normal Saline) 10 ml IVF PRN PRN PRN Reason: Saline Flush
[2018-04-03] MEDS: fentaNYL 75 mcg/hour Patch TD SCH (14:13)
[2018-04-03] MEDS: Fluconazole 100 MG TAB PO SCH (16:27)
[2018-04-04] MEDS: Hydrocodone-Acetamin 15 ML UDCUP PO PRN ×3 (01:47→16:01)
[2018-04-04 05:19] LABS: Anion Gap 11 mmol/L (10-20); BUN (Urea Nitrogen) 17 mg/dL (8.9-20.6); Calc. Creatinine Clearance 78 mL/min (70-130); Calcium 9.3 mg/dL (7.8-10.44); Carbon Dioxide 30 mmol/L (22-29); Chloride 90 mmol/L (98-107); Estimated GFR-MDRD Greater than 90; Glucose 102 mg/dL (70-105); Potassium 3.6 mmol/L (3.5-5.1); Sodium 127 mmol/L (136-145)
[2018-04-04] MEDS: Enoxaparin Sodium 40 MG/0.4 ML SYRINGE SC SCH (09:27)
[2018-04-04] MEDS: Spironolactone 25 MG TAB PO SCH ×2 (09:28→16:59)
--- NOTE | 2018-04-04 10:36 | PDOC.PN ---
- Subjective Encounter Start Date: 04/04/18 Encounter Start Time: 10:00 Subjective: still not being able to keep anything down, is nauseous - Objective Resuscitation Status: Resuscitation Status FULL:Full Resuscitation MAR Reviewed: Yes Vital Signs & Weight: Vital Signs (12 hours) Temp Pulse Resp BP Pulse Ox 04/04/18 08:00 97.8 F 112 H 18 126/88 98 Weight Admit Weight 98 lb Weight 98 lb I&O: 04/03/18 04/04/18 04/05/18 06:59 06:59 06:59 Intake Total 960 410 Output Total 1400 1025 Balance -440 -615 Result Diagrams: 04/01/18 05:27 04/04/18 04:17 Phys Exam - Physical Examination HEENT: PERRLA, moist MMs Neck: no JVD, supple Respiratory: no wheezing, no rales Cardiovascular: RRR, no significant murmur Gastrointestinal: soft, positive bowel sounds ascites++ Musculoskeletal: no edema, pulses present Neurological: non-focal, moves all 4 limbs Dx/Plan (1) Ascites Code(s): R18.8 - OTHER ASCITES Status: Acute Qualifiers: Ascites type: malignant Qualified Code(s): R18.0 - Malignant ascites Comment: paracentesis 04/01/18 with 2 L fluid removal, d/t peritoneal carcinomatosis. Sent for Cx /GS (2) Dysphagia Code(s): R13.10 - DYSPHAGIA, UNSPECIFIED Status: Acute Comment: EGD done- herbert esophagitis, on Diflucan (3) Hydronephrosis, left Code(s): N13.30 - UNSPECIFIED HYDRONEPHROSIS Status: Acute Comment: s/p Left uretheral stent 03/31/18 (4) Hyponatremia Code(s): E87.1 - HYPO-OSMOLALITY AND HYPONATREMIA Status: Acute (5) Peritoneal carcinomatosis Code(s): C78.6 - SECONDARY MALIGNANT NEOPLASM OF RETROPERITON AND PERITONEUM; C80.1 - MALIGNANT (PRIMARY) NEOPLASM, UNSPECIFIED Status: Acute (6) Colon cancer Code(s): C18.9 - MALIGNANT NEOPLASM OF COLON, UNSPECIFIED Status: Chronic Comment: has ileostomy (7) Crohns disease Code(s): K50.90 - CROHN'S DISEASE, UNSPECIFIED, WITHOUT COMPLICATIONS Status: Chronic (8) Severe protein-calorie malnutrition Code(s): E43 - UNSPECIFIED SEVERE PROTEIN-CALORIE MALNUTRITION Status: Chronic - Plan still very weak, unable to eat much -: has ascites which is slowly accumulating -: awaiting Tx to MD Rodriguez, will likely need abd drain for rec ascites -: start spironolactone bid, dc norvasc, watch for electrolytes -: is amb in [facility], poor prognosis * . Review of Systems - Medications/Allergies Allergies/Adverse Reactions: Allergies Allergy/AdvReac Type Severity Reaction Status Date / Time No Known Allergies Allergy Verified 04/21/17 14:23 Medications: Current Medications Acetaminophen (Tylenol) 650 mg PO Q4H PRN PRN Reason: Headache/Fever or Pain Hydrocodone Bitart/Acetaminophen (Hydrocodone-Apap 7.5-325/15) 15 ml PO Q6H PRN PRN Reason: PAIN (7-10) Last Admin: 04/04/18 09:29 Dose: 15 ml Clonidine (Catapres) 0.1 mg PO Q4H PRN PRN Reason: Systolic BP > 180 Last Admin: 03/30/18 17:39 Dose: 0.1 mg Enoxaparin Sodium (Lovenox) 40 mg SC 0900 [facility] Last Admin: 04/04/18 09:27 Dose: 40 mg Fentanyl (Sublimaze) 12.5 mcg SLOW IVP Q6H PRN PRN Reason: Pain Last Admin: 04/02/18 11:51 Dose: 12.5 mcg Fentanyl (Duragesic) 75 mcg TD Q3D [facility] Last Admin: 04/03/18 14:13 Dose: 75 mcg Fluconazole (Diflucan) 200 mg PO 1600 [facility] Stop: 04/15/18 23:59 Last Admin: 04/03/18 16:27 Dose: 200 mg Hydralazine HCl (Apresoline) 10 mg SLOW IVP Q6H PRN PRN Reason: SBP > 180 Last Admin: 04/02/18 04:01 Dose: 10 mg Pantoprazole Sodium (Protonix) 40 mg PO BID [facility] Last Admin: 04/04/18 09:28 Dose: 40 mg Sodium Chloride (Flush - Normal Saline) 10 ml IVF Q12HR [facility] Last Admin: 04/04/18 09:27 Dose: 10 ml Sodium Chloride (Flush - Normal Saline) 10 ml IVF PRN PRN PRN Reason: Saline Flush Spironolactone (Aldactone) 25 mg PO BID[facility] Last Admin: 04/04/18 09:28 Dose: 25 mg
[2018-04-04] MEDS: Fluconazole 100 MG TAB PO SCH (16:01)
[2018-04-05] MEDS: Hydrocodone-Acetamin 15 ML UDCUP PO PRN ×4 (00:30→20:58)
[2018-04-05 06:17] LABS: Anion Gap 16 mmol/L (10-20); BUN (Urea Nitrogen) 26 mg/dL (8.9-20.6); Calc. Creatinine Clearance 73 mL/min (70-130); Calcium 9.5 mg/dL (7.8-10.44); Carbon Dioxide 28 mmol/L (22-29); Chloride 87 mmol/L (98-107); Estimated GFR-MDRD Greater than 90; Glucose 106 mg/dL (70-105); Sodium 127 mmol/L (136-145)
[2018-04-05] MEDS ORDERED: Lidocaine 1% PF 5 ML VIAL ONE (07:39)
[2018-04-05] MEDS ORDERED: Sodium Bicarbonate 2.5 MEQ/5 ML VIAL ONE (07:39)
[2018-04-05] MEDS: Spironolactone 25 MG TAB PO SCH ×2 (08:43→17:14)
[2018-04-05] MEDS: Enoxaparin Sodium 40 MG/0.4 ML SYRINGE SC SCH (08:43)
--- NOTE | 2018-04-05 09:44 | ULT ---
ULTRASOUND-GUIDED PARACENTESIS: CLINICAL INDICATION: Malignant ascites. History of metastatic colonic cancer. PROCEDURE: After informed consent had been obtained, the patient was escorted to the ultrasound suite and placed in a supine position. The abdomen was imaged which revealed adequate ascites for the procedure. Th e skin of the abdomen was then prepped and draped in the standard sterile fashion and the skin surfac e, subcutaneous tissues, and peritoneal lining of the abdomen were anesthetized with 1% Lidocaine buf fered with sodium bicarbonate. A left lower quadrant approach was selected. A small skin incision w as made at the site of topical anesthesia. Subsequently, under real-time ultrasound guidance a [employer] (formerly [employer]) catheter was advanced through the incision site into the peritoneal cavity. Ascites was present at t he catheter hub. The catheter was then secured to vacuum sealed sterile containers, via sterile tubi ng and subsequently 2 L of clear yellow ascites was drained from the patient. The patient was then r emoved from the patient. The patient tolerated the procedure well without evidence of complication. Post procedure imaging revealed no complication and interval reduction in volume of ascites. The pa tient was monitored by a radiology nurse and was stable in condition. IMPRESSION: Technically successful ultrasound-guided paracentesis, as above. POS: STEPHANIE
--- NOTE | 2018-04-05 13:46 | PDOC.PN ---
- Subjective Encounter Start Date: 04/05/18 Encounter Start Time: 07:00 -: old records requested/rev Patient seen and examined for ascites. No new complaints. No overnight events he had paracentesis today - Objective Resuscitation Status: Resuscitation Status FULL:Full Resuscitation MAR Reviewed: Yes Vital Signs & Weight: Vital Signs (12 hours) Temp Pulse Resp BP Pulse Ox 04/05/18 10:07 97.7 F 112 H 20 135/94 H 96 04/05/18 09:31 97.6 F 111 H 20 118/84 98 04/05/18 08:35 97.9 F 120 H 14 131/95 H 99 04/05/18 08:00 97.7 F 112 H 20 98 04/05/18 07:15 97.8 F 111 H 18 125/99 H 98 Weight Admit Weight 98 lb Weight 98 lb I&O: 04/04/18 04/05/18 04/06/18 06:59 06:59 06:59 Intake Total 410 520 Output Total 1025 450 Balance -615 70 Result Diagrams: 04/01/18 05:27 04/05/18 05:58 Phys Exam - Physical Examination Constitutional: NAD cachectic HEENT: PERRLA, moist MMs, sclera anicteric Neck: no JVD, supple Respiratory: no wheezing, no rales, no rhonchi mediport+ Cardiovascular: RRR, no significant murmur, no rub Gastrointestinal: soft, non-tender, no distention, positive bowel sounds surgical scar, colostomy+ Musculoskeletal: no edema, pulses present Neurological: non-focal, normal sensation, moves all 4 limbs Psychiatric: normal affect, A&O x 3 Skin: no rash, normal turgor Dx/Plan (1) Ascites Code(s): R18.8 - OTHER ASCITES Status: Acute Qualifiers: Ascites type: malignant Qualified Code(s): R18.0 - Malignant ascites Comment: requiring recurrent paracentesis (2) Dysphagia Code(s): R13.10 - DYSPHAGIA, UNSPECIFIED Status: Acute Comment: EGD done- herbert esophagitis, on Diflucan (3) Hydronephrosis, left Code(s): N13.30 - UNSPECIFIED HYDRONEPHROSIS Status: Acute Comment: s/p Left uretheral stent 03/31/18 (4) Hypokalemia Code(s): E87.6 - HYPOKALEMIA Status: Acute (5) Hyponatremia Code(s): E87.1 - HYPO-OSMOLALITY AND HYPONATREMIA Status: Acute (6) Peritoneal carcinomatosis Code(s): C78.6 - SECONDARY MALIGNANT NEOPLASM OF RETROPERITON AND PERITONEUM; C80.1 - MALIGNANT (PRIMARY) NEOPLASM, UNSPECIFIED Status: Acute (7) Colon cancer Code(s): C18.9 - MALIGNANT NEOPLASM OF COLON, UNSPECIFIED Status: Chronic Comment: has ileostomy (8) Crohns disease Code(s): K50.90 - CROHN'S DISEASE, UNSPECIFIED, WITHOUT COMPLICATIONS Status: Chronic (9) Metastasis from colon cancer Code(s): C79.9 - SECONDARY MALIGNANT NEOPLASM OF UNSPECIFIED SITE; C18.9 - MALIGNANT NEOPLASM OF COLON, UNSPECIFIED Status: Chronic (10) Severe protein-calorie malnutrition Code(s): E43 - UNSPECIFIED SEVERE PROTEIN-CALORIE MALNUTRITION Status: Chronic (11) PATRICIA (acute kidney injury) Code(s): N17.9 - ACUTE KIDNEY FAILURE, UNSPECIFIED Status: Resolved Comment : Likely prerenal, hydrate and recheck creatinine - Plan cont current plan of care * pt is planned for transfer to [facility] for drain placement for his recurrent need for paracentesis * pt is medically stable * medication reviewed as below * symptomatic treatment. Review of Systems - Review of Systems Eyes: negative: Pain, Vision Change, Conjunctivae Inflammation, Eyelid Inflammation, Redness, Other ENT: negative: Ear Pain, Ear Discharge, Nose Pain, Nose Discharge, Nose Congestion, Mouth Pain, Mouth Swelling, Throat Pain, Throat Swelling, Other Respiratory: negative: Cough, Dry, Shortness of Breath, Hemoptysis, SOB with Excertion, Pleuritic Pain, Sputum, Wheezing Cardiovascular: negative: chest pain, palpitations, orthopnea, paroxysmal nocturnal dyspnea, edema, light headedness, other Gastrointestinal: negative: Nausea, Vomiting, Abdominal Pain, Diarrhea, Constipation, Melena, Hematochezia, Other Genitourinary: negative: Dysuria, Frequency, Incontinence, Hematuria, Retention , Other Musculoskeletal: negative: Neck Pain, Shoulder Pain, Arm Pain, Back Pain, Hand Pain, Leg Pain, Foot Pain, Other - Medications/Allergies Allergies/Adverse Reactions: Allergies Allergy/AdvReac Type Severity Reaction Status Date / Time No Known Allergies Allergy Verified 04/21/17 14:23 Medications: Current Medications Acetaminophen (Tylenol) 650 mg PO Q4H PRN PRN Reason: Headache/Fever or Pain Hydrocodone Bitart/Acetaminophen (Hydrocodone-Apap 7.5-325/15) 15 ml PO Q6H PRN PRN Reason: PAIN (7-10) Last Admin: 04/05/18 15:26 Dose: 15 ml Al Hydroxide/Mg Hydroxide (Maalox) 15 ml PO Q4H PRN PRN Reason: Heartburn or Indigestion Artificial Tears (Tears Naturale) 0 drop EA EYE PRN PRN PRN Reason: Dry Eyes Clonidine (Catapres) 0.1 mg PO Q4H PRN PRN Reason: Systolic BP > 180 Last Admin: 03/30/18 17:39 Dose: 0.1 mg Enoxaparin Sodium (Lovenox) 40 mg SC 0900 [facility] Last Admin: 04/05/18 08:43 Dose: 40 mg Famotidine (Pepcid) 20 mg PO DAILY [facility] Fentanyl (Sublimaze) 12.5 mcg SLOW IVP Q6H PRN PRN Reason: Pain Last Admin: 04/02/18 11:51 Dose: 12.5 mcg Fentanyl (Duragesic) 75 mcg TD Q3D [facility] Last Admin: 04/03/18 14:13 Dose: 75 mcg Fluconazole (Diflucan) 200 mg PO 1600 [facility] Stop: 04/15/18 23:59 Last Admin: 04/05/18 15:26 Dose: 200 mg Guaifenesin (Robitussin Sf) 200 mg PO Q4H PRN PRN Reason: Cough Hydralazine HCl (Apresoline) 10 mg SLOW IVP Q6H PRN PRN Reason: SBP > 180 Last Admin: 04/02/18 04:01 Dose: 10 mg Loperamide HCl (Imodium) 2 mg PO PRN PRN PRN Reason: Diarrhea/Loose Stools Loratadine (Claritin) 10 mg PO DAILYPRN PRN PRN Reason: Sinus Symptoms Magnesium Hydroxide (Milk Of Magnesium) 30 ml PO DAILYPRN PRN PRN Reason: Constipation Mineral Oil/White Petrolatum (Eucerin Cream) 0 gm TOP BIDPRN PRN PRN Reason: Dry Skin Ondansetron HCl (Zofran Odt) 4 mg PO Q6H PRN PRN Reason: Nausea/Vomiting Ondansetron HCl (Zofran) 4 mg IVP Q6H PRN PRN Reason: Nausea/Vomiting Pantoprazole Sodium (Protonix) 40 mg PO BID [facility] Last Admin: 04/05/18 08:43 Dose: 40 mg Phenol (Chloraseptic [place] 180 Ml Bot) 0 ml PO PRN PRN PRN Reason: Sore Throat Senna (Senokot) 2 tab PO HSPRN PRN PRN Reason: Constipation Sodium Chloride (Flush - Normal Saline) 10 ml IVF Q12HR [facility] Last Admin: 04/05/18 08:44 Dose: 10 ml Sodium Chloride (Flush - Normal Saline) 10 ml IVF PRN PRN PRN Reason: Saline Flush Sodium Chloride ([place] Nasal [place] 0.65%) 0 ml EA NARE QIDPRN PRN PRN Reason: Nasal Congestion Spironolactone (Aldactone) 25 mg PO BID[facility] Last Admin: 04/05/18 08:43 Dose: 25 mg Temazepam (Restoril) 15 mg PO HSPRN PRN PRN Reason: Insomnia
[2018-04-05] MEDS ORDERED: Loperamide HCl 2 MG CAP PO PRN (13:49)
[2018-04-05] MEDS ORDERED: Diabetic Tussin 200 MG/10 ML UDCUP PO PRN (13:49)
[2018-04-05] MEDS ORDERED: Chloraseptic Spray 180 ml Bottle PO PRN (13:49)
[2018-04-05] MEDS ORDERED: Loratadine 10 MG TAB PO PRN (13:49)
[2018-04-05] MEDS ORDERED: Sodium Chloride 0.65% Nasal 44 ML BOT EA NARE PRN (13:49)
[2018-04-05] MEDS ORDERED: Temazepam 15 MG CAP PO PRN (13:49)
[2018-04-05] MEDS ORDERED: Milk Of Magnesia 30 ML UDCUP PO PRN (13:49)
[2018-04-05] MEDS ORDERED: Artificial Tears 18 DROP/0.9 ML EA EYE PRN (13:49)
[2018-04-05] MEDS ORDERED: Ondansetron ODT 4 MG TAB PO PRN (13:49)
[2018-04-05] MEDS ORDERED: Eucerin (Mineral Oil/Petrolatum,White) 30 gm Jar TOP PRN (13:49)
[2018-04-05] MEDS ORDERED: Mag-Al 1200 mg/1200 mg/30 ML UDCUP PO PRN (13:49)
[2018-04-05] MEDS ORDERED: Ondansetron HCl/PF 4 MG/2 ML Vial IVP PRN (13:49)
[2018-04-05] MEDS ORDERED: Senokot 8.6 MG TAB PO PRN (13:49)
[2018-04-05] MEDS: Fluconazole 100 MG TAB PO SCH (15:26)
[2018-04-06] MEDS ORDERED: Hydrocodone-Acetamin 15 ML UDCUP PO SCH (00:45)
[2018-04-06] MEDS: Hydrocodone-Acetamin 15 ML UDCUP PO PRN (04:35)
[2018-04-06 06:15] LABS: Band 15 % (5-11); Hemoglobin 12.4 g/dL (14.0-18.0); Lymphocytes 10 % (21-51); MDiff Complete? YES; Mean Corpuscular HGB CONC 31.6 g/dL (32.0-36.0); Mean Corpuscular Hemoglobin 27.5 pg (27.0-31.0); Mean Platelet Volume 6.4 fL (7.4-10.4); Metamyelocyte 2 % (0-0); Monocytes 5 % (0-10); Neutrophil 68 % (42-75); PLT Morphology Comment Appears Increased; Platelet Count 558 thou/uL (130-400); RBC Distribution Width 15.2 % (11.5-14.5); Red Blood Cell (RBC) Count 4.51 mill/uL (4.70-6.10); White Blood Cell (WBC) Count 20.7 thou/uL (4.8-10.8)
[2018-04-06 06:28] LABS: Anion Gap 16 mmol/L (10-20); BUN (Urea Nitrogen) 28 mg/dL (8.9-20.6); Calc. Creatinine Clearance 72 mL/min (70-130); Calcium 9.4 mg/dL (7.8-10.44); Carbon Dioxide 27 mmol/L (22-29); Chloride 87 mmol/L (98-107); Estimated GFR-MDRD Greater than 90; Glucose 124 mg/dL (70-105); Potassium 4.1 mmol/L (3.5-5.1); Sodium 126 mmol/L (136-145)
[2018-04-06 06:30] LABS: ALT (SGPT) 15 U/L (8-55); AST (SGOT) 23 U/L (5-34); Albumin 3.3 g/dL (3.5-5.0); Alkaline Phosphatase 119 U/L (40-150); Bilirubin, Direct 0.4 mg/dL (0.1-0.3); Bilirubin, Total 0.6 mg/dL (0.2-1.2); Protein, Total 6.5 g/dL (6.0-8.3)
[2018-04-06] MEDS: Enoxaparin Sodium 40 MG/0.4 ML SYRINGE SC SCH (08:01)
[2018-04-06] MEDS: Spironolactone 25 MG TAB PO SCH (08:01)
[2018-04-06 08:02] VITALS: BP 137/76; TEMP 97.5
[2018-04-06] MEDS ORDERED: Famotidine 20 MG TAB PO SCH (09:00)
--- NOTE | 2018-04-06 10:02 | DIS ---
DATE OF ADMISSION: 03/30/2018 DATE OF DISCHARGE: 04/06/2018 PRIMARY CARE PHYSICIAN: [facility] call admission. DISCHARGE DISPOSITION: Home. PRIMARY DISCHARGE DIAGNOSES: Recurrent ascites due to carcinomatosis peritonitis from malignant from metastasis from colon cancer, status post paracentesis; oropharyngeal dysphagia; left hydronephrosis status post stent placement; hypokalemia; hyponatremia; acute kidney failure, improved. SECONDARY DISCHARGE DIAGNOSES: Severe protein calorie malnutrition, metastasis from colon cancer, Cr ohn's disease, colon cancer, peritoneal carcinomatosis, recurrent ascites. PRIMARY PROCEDURES/OPERATIONS: 1. Paracentesis while in hospital. 2. Cystourethroscopy with left-sided stent placement by Dr. Martínez. RADIOLOGICAL INVESTIGATION: Abdomen and pelvis CT scan on admission showed severe left obstructive u ropathy with moderate to severe left hydroureteronephrosis due to new small intrapelvic mass, large v olume ascites, mild right hydronephrosis, mild right nephrolithiasis, metastatic mass at midline and anterior upper abdominal wall, right colostomy, right hepatic lobe metastasis. SIGNIFICANT LABORATORY DATA: WBC 20.7, hemoglobin 12.4, platelet 554. INR 1.0. Sodium 126, potassi um 4.1, BUN 28, creatinine 0.85, calcium 9.4. Urine sodium 20. Urine osmolality 533. Ascitic fluid is negative for any infection. Blood culture and ascitic fluid culture negative. DISCHARGE MEDICATIONS: The patient will continue all his previous medications; [place] 1 or 2 tablets q.6 hourly p.r.n., Diflucan 200 p.o. daily, Protonix 40 mg p.o. b.i.d. CONTRAINDICATIONS: None. CODE STATUS: FULL CODE. INPATIENT CONSULTANTS: Dr. Mauricio Qaun was consulted for hydronephrosis. Dr. Gregg Quan was consult ed for dysphagia. Dr. Arredondo and was following for metastatic colon cancer. TEST RESULTS PENDING ON DISCHARGE: None. ALLERGIES: No known drug allergy. DISCHARGE PLAN: Post hospital, patient will be discharged to home and subsequently he will follow up with Oncology for outpatient chemotherapy. The patient is also advised to follow up with Dr. Martínez and Dr. Escobedo. HOSPITAL COURSE: A 43-year-old male with colon cancer and Crohn's disease. He has metastasis to per itoneum and he is having peritoneal carcinomatosis. At this time, he was admitted for abdominal disc omfort. The patient was admitted by Dr. Gamez on 03/30/2018. Please see her H&P for further detail . The patient was having large ascites and that is why Dr. Escobedo was consulted. Patient required par acentesis while in hospital x2. He had a CT of the abdomen and pelvis which showed left-sided hydrou reteronephrosis and that is why Dr. Martínez was consulted who did a stent placement in left ureter. Manjit valenzuela also had hyponatremia that was related with severe protein calorie malnutrition. Oncology was following while in hospital. Initially, there was plan to transfer him to [facility], but it was no t successful and that is why we are discharging him home and subsequently Oncology will make referral for peritoneal drain placement for recurrent ascites. GI started on Diflucan for Michelle esophagiti s and Protonix 40 mg b.i.d. was prescribed. Rest of medication he will continue as per previous. e patient is seen and examined at bedside today. Oncology cleared him for discharge. PHYSICAL EXAMINATION: VITAL SIGNS: Today, temperature 97.5, pulse 114, respiratory rate 18, saturation 93% on room air, bl ood pressure 137/76, weight 98 pounds. GENERAL: The patient is cachectic. HEAD: Normocephalic, atraumatic. EYES: Pupils round, reactive to light. ENT: Oropharynx within normal limits. Moist mucous membranes. NECK: Supple, no JVD. LUNGS: Clear to auscultation without any rhonchi. CARDIAC: S1, S2 regular, tachycardia, no murmur. ABDOMEN: Colostomy in place. Bowel sounds present. No peritoneal sign. EXTREMITIES: No edema. NEUROLOGIC: Nonfocal examination. This patient is very high risk for recurrent admission given multiple comorbidities.
== END 2018-04-06 09:20 | disposition home or self-care (01) | DRG 374 ==
LOC: ONC 12:18
PROVIDERS: ADMIT Family Medicine; ATTEND Family Medicine
PROC: 0T778DZ Dilation of Left Ureter with Intraluminal Device, Via Natural or Artificial Opening Endoscopic (ICD-10-PCS; 2018-03-31)
PROC: BT1F1ZZ Fluoroscopy of Left Kidney, Ureter and Bladder using Low Osmolar Contrast (ICD-10-PCS; 2018-03-31)
PROC: 0W9G3ZZ Drainage of Peritoneal Cavity, Percutaneous Approach (ICD-10-PCS; 2018-04-01)
PROC: 0W9G3ZZ Drainage of Peritoneal Cavity, Percutaneous Approach (ICD-10-PCS; principal; 2018-04-05)
DX: C78.6 Secondary malignant neoplasm of retroperitoneum and peritoneum (principal); K65.8 Other peritonitis; E43 Unspecified severe protein-calorie malnutrition; B37.81 Candidal esophagitis; C18.9 Malignant neoplasm of colon, unspecified; K50.90 Crohn's disease, unspecified, without complications; R18.8 Other ascites; E87.1 Hypo-osmolality and hyponatremia; N17.9 Acute kidney failure, unspecified; Z68.1 Body mass index [BMI] 19.9 or less, adult; N13.1 Hydronephrosis with ureteral stricture, not elsewhere classified; R13.12 Dysphagia, oropharyngeal phase; E87.6 Hypokalemia; L40.9 Psoriasis, unspecified; E86.0 Dehydration
CPT/HCPCS: 36415; 49083; 74177; 74420; 80048; 80053; 80076; 82042; 82150; 83615; 83930; 83935; 83986; 84157; 84300; 85025; 85060; 85610; 85730; 87070; 87086; 87205; 88305; 88312; 88313; 89051; A4216; C1758; C1769; C9113; J0360; J1650; J1940; J2001; J2270; J2405; J2704; J3010; J3230; J7050; P9047; Q0162; Q9961

== ENCOUNTER 2018-04-07 19:57 | Inpatient (IN) | payer BC ==
[2018-04-07] MEDS ORDERED: Metoclopramide HCl 10 MG/2 ML VIAL ONE (20:27)
[2018-04-07 20:47] LABS: Hemoglobin 12.3 g/dL (14.0-18.0); Mean Corpuscular Hemoglobin 27.4 pg (27.0-31.0); Mean Corpuscular Volume 85.6 fl (80.0-94.0); Mean Platelet Volume 6.4 fL (7.4-10.4); Platelet Count 565 thou/uL (130-400); RBC Distribution Width 15.1 % (11.5-14.5); Red Blood Cell (RBC) Count 4.49 mill/uL (4.70-6.10)
[2018-04-07 21:05] LABS: Band 21 % (5-11); Eosinophils 1 % (0-10); Lymphocytes 7 % (21-51); MDiff Complete? YES; Monocytes 9 % (0-10); Myelocyte 1 % (0-0); Neutrophil 61 % (42-75); PLT Morphology Comment Appears Increased
[2018-04-07 21:07] LABS: ALT (SGPT) 14 U/L (8-55); AST (SGOT) 25 U/L (5-34); Albumin 3.2 g/dL (3.5-5.0); Alkaline Phosphatase 130 U/L (40-150); Anion Gap 24 mmol/L (10-20); BUN (Urea Nitrogen) 62 mg/dL (8.9-20.6); Bilirubin, Total 0.7 mg/dL (0.2-1.2); Calc. Creatinine Clearance 0 mL/min (70-130); Calcium 8.9 mg/dL (7.8-10.44); Carbon Dioxide 18 mmol/L (22-29); Chloride 90 mmol/L (98-107); Estimated GFR-MDRD 39; Globulin 3.4 g/dL (2.4-3.5); Glucose 118 mg/dL (70-105); Protein, Total 6.6 g/dL (6.0-8.3); Sodium 127 mmol/L (136-145)
--- NOTE | 2018-04-07 21:53 | RAD ---
PORTABLE CHEST: 04/07/2018 PROVIDED CLINICAL HISTORY: Vomiting. COMPARISON: 11/26/2016 FINDINGS: The cardiac and mediastinal silhouette are unchanged in appearance. The left subclavian implanted po rt is again noted, in a similar position. No focal consolidation, pleural fluid, or pneumothorax timo arent. Partially visualized left ureteral stent. IMPRESSION: No evidence for an acute cardiopulmonary process. POS: [facility]
[2018-04-07] MEDS ORDERED: Cefepime 2 GM VIAL ONE (22:02)
[2018-04-07] MEDS ORDERED: Sodium Chloride 0.9% 100 ML ONE (22:03)
[2018-04-07] MEDS ORDERED: Promethazine HCl 25 MG/ML VIAL ONE (22:20)
[2018-04-07 22:27] LABS: Bilirubin Moderate (Negative); Blood, Urine Large (Negative); Clarity TURBID (Clear); Glucose, Urine (Dipstick) Negative (Negative); Leukocyte Moderate (Negative); Nitrite Negative (Negative); Protein, Urine (Dipstick) 100 mg/dL (Neg-Trace); Specific Gravity, Urine 1.023 (1.002-1.036); Urobilinogen 0.2 mg/dL (0.2-1.0)
[2018-04-07 22:30] LABS: Bacteria/HPF None Seen HPF (None Seen); Squamous Epithelial 0-3 HPF (0-3)
[2018-04-07 22:32] LABS: Pathc Cast-AUWi Flag 8.45 (0-2.49)
[2018-04-07 22:33] LABS: RBC/HPF GREATER THAN 50-TNTC HPF (0-3); Yeast-All Forms None Seen HPF (None Seen)
[2018-04-07 22:34] LABS: Hyaline Casts/LPF 0-3 HYALINE CAST LPF (0-3 Hyaline)
[2018-04-07 22:40] LABS: Magnesium 1.8 mg/dL (1.6-2.6); Phosphorus 4.6 mg/dL (2.3-4.7)
[2018-04-08 00:48] VITALS: BMI 15.0
[2018-04-08 01:02] LABS: Lactic Acid 2.5 mmol/L (0.5-2.2)
[2018-04-08] MEDS: Sodium Chloride 0.9% 1,000 ML IV SCH ×5 (01:05→23:44)
[2018-04-08] MEDS ORDERED: Ondansetron ODT 4 MG TAB SL PRN (01:10)
[2018-04-08] MEDS ORDERED: Ondansetron HCl/PF 4 MG/2 ML Vial IVP PRN ×2 (01:10→09:42)
[2018-04-08] MEDS ORDERED: chlorproMAZINE HCl 25 MG in Sodium Chloride 0.9% 50 ML IVPB SCH ×2 (03:45→19:30)
[2018-04-08] MEDS ORDERED: Fentanyl 100 MCG/2 ML VIAL SLOW IVP SCH (04:45)
[2018-04-08 07:18] LABS: #Lymphocytes 0.6 thou/uL (1.20-3.40); #Monocytes 0.9 thou/uL (0.11-0.59); #Neutrophils 11.8 thou/uL (1.40-6.50); %Basophils 0.1 % (0.0-1.0); %Eosinophils 0.2 % (0.0-10.0); %Lymphocytes 4.8 % (21.0-51.0); %Neutrophils 87.9 % (42.0-75.0); Hemoglobin 10.8 g/dL (14.0-18.0); Mean Corpuscular HGB CONC 31.9 g/dL (32.0-36.0); Mean Corpuscular Hemoglobin 27.8 pg (27.0-31.0); Mean Corpuscular Volume 87.3 fl (80.0-94.0); Mean Platelet Volume 6.3 fL (7.4-10.4); Platelet Count 457 thou/uL (130-400); RBC Distribution Width 15.1 % (11.5-14.5); Red Blood Cell (RBC) Count 3.87 mill/uL (4.70-6.10); White Blood Cell (WBC) Count 13.4 thou/uL (4.8-10.8)
[2018-04-08 07:19] LABS: Lactic Acid 1.7 mmol/L (0.5-2.2)
[2018-04-08 07:41] LABS: Albumin 2.7 g/dL (3.5-5.0); Anion Gap 16 mmol/L (10-20); BUN (Urea Nitrogen) 53 mg/dL (8.9-20.6); BUN/Creatinine Ratio 47.75; Calc. Creatinine Clearance 53 mL/min (70-130); Carbon Dioxide 17 mmol/L (22-29); Chloride 101 mmol/L (98-107); Estimated GFR-MDRD 73; Glucose 106 mg/dL (70-105); Magnesium 1.7 mg/dL (1.6-2.6); Phosphorus 3.6 mg/dL (2.3-4.7); Potassium 4.6 mmol/L (3.5-5.1); Sodium 129 mmol/L (136-145)
[2018-04-08] MEDS ORDERED: Acetaminophen 500 MG TAB PO PRN (09:42)
[2018-04-08] MEDS ORDERED: Ondansetron ODT 4 MG TAB PO PRN (09:42)
[2018-04-08] MEDS: Morphine 10 MG/0.5 ML ORAL SYRINGE SL PRN ×3 (10:29→18:13)
[2018-04-08] MEDS: Cefepime 2 GM in Sodium Chloride 0.9% 100 ML IVPB SCH ×2 (10:29→23:41)
--- NOTE | 2018-04-08 11:15 | HP ---
DATE OF ADMISSION: 04/08/2018 PRIMARY CARE PROVIDER: Yoli yeung PRIMARY ONCOLOGIST: Dr. Arredondo CHIEF COMPLAINT: Nausea, vomiting, and abdominal pain. HISTORY OF PRESENT ILLNESS: This is a 43-year-old male who presents to [facility] Emergency Department complaining of persistent nausea, vomiting, and inability to hold oral medicati ons or liquids. The patient states symptoms began approximately 48 hours prior to this evaluation wi th intractable vomiting. The patient admits to minimal oral intake and last food intake is unknown, possibly 4 days prior to this evaluation. The patient was recently admitted to [facility] w ith significant history of peritoneal carcinomatosis due to metastatic colon cancer. The patient was also treated for malignant ascites, undergoing paracentesis with removal of 2 liters of ascitic flui d. The patient also underwent a left ureteral stent placement due to obstructive uropathy and hydrou reteronephrosis. The patient was admitted from 03/30/2018 through 04/06/2018, releasing home. The p atient was placed on Diflucan and Protonix due to concern for esophageal candidiasis. The patient st ates he was compliant with his medications, but states he was unable to hold them down due to the per sistent nausea. The patient denied any documented fever, dysuria or diarrhea. History is significan t for greater than 40-pound weight loss in the last 4-6 weeks due to the diagnosis of colon cancer. The patient unable to undergo chemotherapy due to the poor functional status and severe protein calor ie malnutrition. In the emergency room, patient underwent general evaluation including chest imaging showing no acute infiltrate. The patient received antiemetics including Phenergan and Reglan in add ition to 2 liters of normal saline. Patient also received cefepime after concern for occult sepsis. PAST MEDICAL HISTORY: 1. Metastatic colon cancer with peritoneal carcinomatosis. 2. Malignant ascites status post paracentesis with large volume removal on 04/05/2018. 3. Severe protein calorie malnutrition. 4. History of Crohn's disease. 5. Chronic hyponatremia. 6. Left hydroureteronephrosis, status post left ureteral stent placement on 03/31/2018. PAST SURGICAL HISTORY: 1. Status post paracentesis x2. 2. Status post left ureteral stent placement. 3. Status post bowel resection with colostomy. 4. Status post left upper chest MediPort placement. CURRENT MEDICATIONS: 1. Diflucan 200 mg p.o. daily. 2. [place] 10/325 mg 1-2 tabs p.o. q.6 hours p.r.n. pain. 3. Protonix 40 mg p.o. b.i.d. ALLERGIES: No known drug allergies. FAMILY HISTORY: No inheritable diseases per patient's report. SOCIAL HISTORY: Patient is with one child. No current alcohol, tobacco or illicit drug use. Employed with [employer]. REVIEW OF SYSTEMS: The following complete review of systems was negative, unless otherwise mentioned in the HPI or below: Constitutional: Weight loss or gain, ability to conduct usual activities. Skin: Rash, itching. Eyes: Double vision, pain. ENT/Mouth: Nose bleeding, neck stiffness, pain, tenderness. Cardiovascular: Palpitations, dyspnea on exertion, orthopnea. Respiratory: Shortness of breath, wheezing, cough, hemoptysis, fever or night sweats. Gastrointestinal: Poor appetite, abdominal pain, heartburn, nausea, vomiting, constipation, or diarr hea. Genitourinary: Urgency, frequency, dysuria, nocturia. Musculoskeletal: Pain, swelling. Neurologic/Psychiatric: Anxiety, depression. Allergy/Immunologic: Skin rash, bleeding tendency. Otherwise negative except as stated per HPI. PHYSICAL EXAMINATION: VITAL SIGNS: Currently, blood pressure 120/76, pulse 117, respiratory rate 18, temperature 97.8 degr ees Fahrenheit, O2 saturation 97% on room air. GENERAL APPEARANCE: This is a 43-year-old male, alert and oriented x3, cachectic, ill-appe aring. HEENT: Pupils are equal, round, and reactive to light and accommodation. Extraocular muscles are in tact. No scleral icterus, no conjunctival injection. Nares patent. OP is clear. Oral mucosa dry. NECK: Supple, no cervical adenopathy, no thyromegaly, no carotid bruits, no JVD appreciated. Severe muscle wasting and bitemporal wasting noted. CHEST: Lungs are clear to auscultation bilaterally. No wheezing or rhonchi. CARDIOVASCULAR: S1 and S2 with tachycardia. No murmur, rub or gallop appreciated. Left upper chest with MediPort in place. No fluctuance or erythema. ABDOMEN: Protuberant. Colostomy in place in the right upper quadrant. Postsurgical changes noted. Mild fluid wave noted. No palpable mass. Bowel sounds are positive in all four quadrants. EXTREMITIES: Severe muscle atrophy. No asymmetric edema appreciated. Pulses palpable distally at t he dorsalis pedis, posterior tibial, and popliteal arteries bilaterally. Capillary refill less than 2 seconds. NEUROLOGIC: Cranial nerves II-XII are grossly intact. No focal or lateralizing signs appreciated. PERTINENT LABORATORY DATA AND X-RAY FINDINGS: Sodium 127, potassium 5.0, chloride 90, CO2 of 18, ani on gap 24, BUN 62, creatinine 1.93, estimated GFR 39, glucose 118. Lactic acid level ranged between 1.7-5.9, phosphorus 4.6, magnesium 1.8. LFTs within normal limits. Albumin ranged between 2.7-3.2. CBC showed white blood cell count of 18, hemoglobin 12, hematocrit 38, platelet count 565 with 21% b ands, 88% neutrophils. Urinalysis positive for blood, moderate bilirubin, moderate leukocyte esteras e with greater than 50 to too numerous to count RBCs per high power field and 11-20 WBCs per high pow er field. Beta hydroxybutyrate level 1.43. Blood cultures x2 from 04/07/2018 showed no growth to da te. Portable chest x-ray dated 04/07/2018 showed no acute cardiopulmonary process. ASSESSMENT AND PLAN: 1. Sepsis. Exact source is unclear, potential intraabdominal process versus urinary source. We ron l continue broad spectrum IV antibiotic coverage with vancomycin 1gram q.12 hours with additional cef epime 2 grams IV q.12 hours. Blood and urine culture is pending. Consider repeat paracentesis for s ampling of ascites to rule out peritonitis. Continue general sepsis protocol. Continue IV fluids wi th normal saline at 150 mL per hour. 2. Acute kidney injury. Suspect secondary to volume depletion and dehydration. Improved with IV fl uid hydration. Avoid nephrotoxic agents and contrast media. Serial creatinine monitoring. Monitor urine output. 3. Intractable nausea and vomiting. Suspect multifactorial given patient's advanced colon cancer an d peritoneal carcinomatosis. Continue antiemetics with Zofran 8 mg IV q.6 hours p.r.n. Clear liquid s as tolerated. Continue intravenous normal saline as stated previously. 4. Peritoneal carcinomatosis with stage IV colon cancer. We will consult Medical Oncology Service f or any further recommendations. Continue supportive management. Consult Palliative Care Service to discuss goals of care. The patient may be deemed an appropriate candidate for hospice. 5. Hyponatremia. Chronic appearing. Suspect multifactorial including poor nutritional status. 6. Chronic normocytic anemia - multifactorial given patient's advanced colon cancer. No current ciro dence to suggest acute blood loss. Continue serial hemoglobin assessment. 7. Severe protein calorie malnutrition. We will consult dietitian services. Questionable TPN jn date. Continue regular diet as tolerated. Ensure t.i.d. 8. Prophylaxis. Sequential compression devices while in bed. Protonix 40 mg p.o. b.i.d. PT for fu nctional assessment. 9. Code status is FULL. Surrogate medical decision maker is patient's spouse.
--- NOTE | 2018-04-08 11:31 | CON ---
DATE OF CONSULTATION: 04/08/2018 REASON FOR CONSULTATION: Colon cancer. HISTORY OF PRESENT ILLNESS: Mr. Solorzano is a pleasant 43-year-old gentleman who has metastatic colon cancer. He is managed by [facility] and Dr. Arredondo. He has peritoneal carcinomatosis and devel oped significant ascites over the last several weeks. He was just discharged from this facility for dysphagia and ascites. He had 2 paracentesis with 2 liters of malignant fluid drained each time. He was seen by GI and diagnosed with Michelle esophagitis and is on Diflucan. He was discharged on afternoon. He was to have chemotherapy yesterday, but unfortunately was weak and extremely dizzy. He called a friend who brought him to the emergency room yesterday. The patient's lactic acid was elevated at 5.9. He had acute kidney injury secondary to dehydration. He was given IV fluids and pa in medication and admitted for further evaluation. PAST MEDICAL HISTORY: 1. Metastatic colon cancer. 2. Dysphagia. PAST SURGICAL HISTORY: 1. Hemicolectomy. 2. Ileostomy. ALLERGIES: No known drug allergies. HOME MEDICATIONS: 1. MS Contin 30 mg b.i.d. 2. Minocycline b.i.d. 3. [place] p.r.n. 4. Protonix 40 mg daily. FAMILY HISTORY: Noncontributory. SOCIAL HISTORY: , lives with his spouse, one child. No alcohol, tobacco or illicit drug use. REVIEW OF SYSTEMS: Ten point review of systems is positive for weakness, dysphagia and pain, otherwi se negative. PHYSICAL EXAMINATION: VITAL SIGNS: Temperature is 97.8, pulse is 117, respiratory rate 18, BP is 120/76. He is 97% on nena m air. GENERAL: This is a cachectic male, in no acute distress. HEENT: Normocephalic, atraumatic. Pupils equal and reactive to light. NECK: Supple. CARDIOVASCULAR: Regular rate and rhythm. He is tachycardic. LUNGS: Clear. ABDOMEN: Distended and firm. He has ileostomy in his right lower quadrant. EXTREMITIES: No clubbing, cyanosis or edema. SKIN: No rash. HEMATOLOGIC: No petechia or purpura. NEUROLOGIC: Nonfocal. PSYCHIATRIC: The patient is alert and oriented and appropriate. PERTINENT LABORATORY AND X-RAYS: Current WBCs are 13.4, hemoglobin 10.8, hematocrit 33.8, platelet c ount is 457,000, 88% neutrophils, 5% lymphocytes. Sodium is 129, potassium 4.6, chloride 101, CO2 is 27, BUN is 53, creatinine 1.11, lactic acid is 1.7, calcium 8.0, phosphorus 3.6, magnesium 1.7, tota l bilirubin is 0.7, AST is 25, ALT 14, alkaline phosphatase is 130. Serum total protein 6.6, albumin 3.2, globulin 3.4. Chest x-ray in the ER showed no acute process. ASSESSMENT: 1. Metastatic colon cancer. 2. Recurrent malignant ascites. 3. Severe malnutrition. DISCUSSION: Transferred to [facility], was attempted on his last visitation here. They declined and recommended hospice. The patient declined hospice and wanted to resume chemotherapy. He was due yesterday, but unfortunately was unable to come to the clinic secondary to weakness. I discussed wi th the patient. He is a poor prognosis. He understands and has agreed to be a DNR and to discuss porfirio austin with palliative care team. He would like to go home as he as a very young child. He will like ly need a therapeutic palliative paracentesis prior to discharge home. He does complain of pain and is asking for pain relief. I will add Roxanol sublingual to his regimen. Thank you for the consult.
[2018-04-08] MEDS ORDERED: Vancomycin HCl 1 GM in Premix Bag 1 BAG IVPB SCH (12:00)
[2018-04-08] MEDS: Hydrocodone-Acetamin 15 ML UDCUP PO PRN ×2 (14:27→20:13)
[2018-04-08] MEDS ORDERED: Vancomycin HCl 1 GM in Sodium Chloride 0.9% 250 ML 250 ML IVPB SCH (21:00)
[2018-04-09] MEDS: Hydrocodone-Acetamin 15 ML UDCUP PO PRN ×2 (02:21→08:51)
[2018-04-09 06:04] LABS: ALT (SGPT) 15 U/L (8-55); AST (SGOT) 27 U/L (5-34); Albumin 2.9 g/dL (3.5-5.0); Alkaline Phosphatase 124 U/L (40-150); Anion Gap 13 mmol/L (10-20); BUN (Urea Nitrogen) 36 mg/dL (8.9-20.6); Bilirubin, Total 0.4 mg/dL (0.2-1.2); Calc. Creatinine Clearance 69 mL/min (70-130); Calcium 8.4 mg/dL (7.8-10.44); Carbon Dioxide 15 mmol/L (22-29); Chloride 106 mmol/L (98-107); Estimated GFR-MDRD Greater than 90; Glucose 116 mg/dL (70-105); Potassium 4.2 mmol/L (3.5-5.1); Protein, Total 5.9 g/dL (6.0-8.3); Sodium 130 mmol/L (136-145)
[2018-04-09 06:51] LABS: Band 19 % (5-11); Hemoglobin 10.2 g/dL (14.0-18.0); Lymphocytes 8 % (21-51); MDiff Complete? YES; Mean Corpuscular HGB CONC 31.8 g/dL (32.0-36.0); Mean Corpuscular Hemoglobin 27.9 pg (27.0-31.0); Mean Corpuscular Volume 87.5 fl (80.0-94.0); Mean Platelet Volume 6.6 fL (7.4-10.4); Monocytes 5 % (0-10); Neutrophil 68 % (42-75); Platelet Count 482 thou/uL (130-400); RBC Distribution Width 15.5 % (11.5-14.5); Red Blood Cell (RBC) Count 3.67 mill/uL (4.70-6.10); White Blood Cell (WBC) Count 14.9 thou/uL (4.8-10.8)
--- NOTE | 2018-04-09 07:10 | PDOC.PN ---
- Subjective Encounter Start Date: 04/09/18 Encounter Start Time: 09:00 Subjective: Patient feeling better after paracentesis this morning. Ready to -: go home on hospice. - Objective Resuscitation Status: Resuscitation Status DNR:Do Not Resuscitate MAR Reviewed: Yes Vital Signs & Weight: Vital Signs (12 hours) Temp Pulse Resp BP Pulse Ox 04/08/18 23:09 98.2 F 122 H 16 113/73 98 04/08/18 20:00 98.2 F 122 H 16 99 04/08/18 19:52 97.9 F 122 H 16 127/86 99 Weight Weight 93 lb 9.6 oz I&O: 04/08/18 04/09/18 04/10/18 06:59 06:59 06:59 Intake Total 0 4000 Output Total 200 1250 Balance -200 2750 Result Diagrams: 04/09/18 05:22 04/09/18 05:22 Phys Exam - Physical Examination Constitutional: NAD cachectic HEENT: moist MMs Respiratory: no wheezing, no rales, no rhonchi Cardiovascular: no significant murmur tachycardic, regular moderate distension, positive bowel sounds, nontender Neurological: non-focal, moves all 4 limbs Psychiatric: normal affect, A&O x 3 Dx/Plan (1) Ascites Code(s): R18.8 - OTHER ASCITES Status: Acute Qualifiers: Ascites type: malignant Qualified Code(s): R18.0 - Malignant ascites Comment: requiring recurrent paracentesis, s/p paracentesis today (2) Sepsis Code(s): A41.9 - SEPSIS, UNSPECIFIED ORGANISM Status: Acute Comment: Lactic acidosis resolved, still quite tachycardic possibly due to direct effect from metastatic cancer vs. infection (3) Peritoneal carcinomatosis Code(s): C78.6 - SECONDARY MALIGNANT NEOPLASM OF RETROPERITON AND PERITONEUM; C80.1 - MALIGNANT (PRIMARY) NEOPLASM, UNSPECIFIED Status: Chronic (4) Colon cancer Code(s): C18.9 - MALIGNANT NEOPLASM OF COLON, UNSPECIFIED Status: Chronic Comment: has ileostomy (5) Crohns disease Code(s): K50.90 - CROHN'S DISEASE, UNSPECIFIED, WITHOUT COMPLICATIONS Status: Chronic (6) Severe protein-calorie malnutrition Code(s): E43 - UNSPECIFIED SEVERE PROTEIN-CALORIE MALNUTRITION Status: Chronic (7) PATRICIA (acute kidney injury) Code(s): N17.9 - ACUTE KIDNEY FAILURE, UNSPECIFIED Status: Resolved Comment : better with hydration - Plan cont current plan of care, continue antibiotics plan for home on hospice today * . - Discharge Day Encounter end time: 09:15
[2018-04-09 08:15] VITALS: BP 114/78; TEMP 97.6
[2018-04-09] MEDS ORDERED: Lidocaine 1% PF 5 ML VIAL ONE (08:16)
[2018-04-09] MEDS ORDERED: Sodium Bicarbonate 2.5 MEQ/5 ML VIAL ONE (08:16)
[2018-04-09] MEDS ORDERED: Fluconazole 100 MG TAB PO SCH (09:00)
--- NOTE | 2018-04-09 09:48 | ULT ---
PARACENTESIS SONOGRAPHIC GUIDED: HISTORY: Malignant ascites. Abdominal pain. FINDINGS: After explaining the procedure and answering all questions, sonographic survey shows a moderate amoun t of free fluid throughout the abdomen. Sterile technique. Buffered local anesthesia, sonographic gu idance, and a left lateral approach were used to carefully advance a 19-gauge Yueh needle and cathete r into the free fluid. The catheter was left to drain 1.8 L clear yellow liquid. Sonographic imaging also showed dilated fluid-filled loops of small bowel throughout the abdomen. The catheter was removed. The patient tolerated the procedure well and was returned in improved cond ition. IMPRESSION: 1. Technically successful sonographic-guided paracentesis. 2. Fluid-filled dilated loops of small bowel throughout the abdomen. Clinical correlation regarding other signs and symptoms of bowel obstruction is required. CT abdomen may be helpful for further ch aracterization. POS: YONATAN
[2018-04-09] MEDS ORDERED: Vancomycin HCl 750 MG in Sodium Chloride 0.9% 250 ML 250 ML IVPB SCH (10:00)
--- NOTE | 2018-04-09 12:04 | DIS ---
PRIMARY CARE PHYSICIAN: Yoli shay. PRIMARY ONCOLOGIST: Dr. Arredondo. REASON FOR ADMISSION: Nausea, vomiting, abdominal pain. DISCHARGE DIAGNOSES: 1. Sepsis, improved. 2. Ascites, improved. 3. Peritoneal carcinomatosis. 4. Colon cancer, metastatic. 5. Crohn's disease. 6. Protein calorie malnutrition. 7. Acute kidney injury, resolved. PROCEDURES: Ultrasound guided paracentesis with removal of 1.8 liters of clear yellow fluid. CONSULTATIONS: Heme/Oncology, Loli Ghosh for Dr. Arredondo. SUMMARY OF HOSPITAL COURSE: This is a 43-year-old white male with a known history of metastatic colo n cancer and carcinomatosis, requiring recurrent paracenteses, each presented with nausea, vomiting, abdominal pain. He had had a recent admission and was transferred to [facility]. However, they sta filippo that there was no intervention for him and recommended hospice. He did not want to go on hospice at that time, so he was discharged home. He was admitted this time, given IV fluids, antiemetics, a nd improved. He did have bandemia, tachycardia, and elevated white blood cell count consistent with sepsis, was put on antibiotics. The patient did well overnight. Heme/Oncology and Palliative Care w ere consulted. They discussed with patient the lack of ability to do chemotherapy due to his recurre nt nausea and vomiting and recommended hospice. The patient did eventually agree to go home [facility]. While he was in the hospital, he did have a paracentesis and was doing much better. DISCHARGE MANAGEMENT: Discharged home on home hospice with [facility]. ACTIVITY: As tolerated. DIET: Liquid diet as tolerated. MEDICATIONS: As per Hospice. FOLLOWUP: Follow up with hospice doctor.
[2018-04-09] MEDS: Sodium Chloride 0.9% 1,000 ML IV SCH (12:07)
[2018-04-09] MEDS: Cefepime 2 GM in Sodium Chloride 0.9% 100 ML IVPB SCH (12:11)
== END 2018-04-09 13:58 | disposition home health service (06) | DRG 871 ==
LOC: ERS 19:57 → ONC 04-08 00:19
PROVIDERS: ADMIT Internal Medicine; ATTEND Internal Medicine
PROC: 0W9G3ZZ Drainage of Peritoneal Cavity, Percutaneous Approach (ICD-10-PCS; principal; 2018-04-09)
DX: A41.9 Sepsis, unspecified organism (principal); E43 Unspecified severe protein-calorie malnutrition; R18.0 Malignant ascites; C78.6 Secondary malignant neoplasm of retroperitoneum and peritoneum; K50.90 Crohn's disease, unspecified, without complications; C78.5 Secondary malignant neoplasm of large intestine and rectum; N17.9 Acute kidney failure, unspecified; Z68.1 Body mass index [BMI] 19.9 or less, adult; E87.1 Hypo-osmolality and hyponatremia; R13.10 Dysphagia, unspecified; Z90.49 Acquired absence of other specified parts of digestive tract; Z96.0 Presence of urogenital implants; D64.9 Anemia, unspecified
CPT/HCPCS: 36415; 49083; 71045; 80053; 80069; 81003; 81015; 82010; 83605; 83735; 84100; 85007; 85025; 85027; 87040; G8978-GP-CH; G8979-GP-CH; G8980-GP-CH; J0692; J2001; J2405; J2550; J2765; J3010; J3230; J3370; J7050